=== PATIENT | male | born 1940 | race Caucasian/White ===

== ENCOUNTER → 2017-12-03 05:59 | Outpatient (CLI) | payer MEDICARE, OTHER, SELFPAY ==
[2017-12-03 07:29] LABS: AST(SGOT) 18 U/L (15-37); Alanine Aminotransfer ALT/SGPT 29 U/L (16-61); Albumin, Serum 3.9 g/dL (3.2-5.0); Alkaline Phosphatase 48 U/L (45-117); Bilirubin, Direct 0.14 mg/dL (0.00-0.30); Cholesterol 185 mg/dL (200); Globulin 3.9 g/dL (2.2-4.2); High Density Lipoprotein 74 mg/dL; Protein, Total 7.8 g/dL (6.4-8.2); Triglycerides 81 mg/dL; Very Low Density Lipoprotein 16 mg/dL (5-40)
== END ==
PROVIDERS: Family Provider Internal Medicine; PCP Internal Medicine; Visit Provider Internal Medicine Cardiovascular Disease
DX: E78.5 Hyperlipidemia, unspecified (principal); Z79.899 Other long term (current) drug therapy
CPT/HCPCS: 36415; 80061; 80076

== ENCOUNTER → 2018-03-25 06:00 | Outpatient (CLI) | payer MEDICARE, OTHER, SELFPAY ==
--- NOTE | 2018-03-25 06:00 | DT_ITS ---
This patient was seen during an EMR downtime March 21, 2018 - March 28, 2018. This patient may have a combination of paper and electronic documentation or all paper documentation. All documentation is viewable within the e-chart portion of [facility] for each patient visit.
[2018-03-25 06:23] LABS: Bacteria 0 SEEN /hpf (None Seen); Mucous, Urine 0 SEEN /hpf (<or=2+); Red Blood Cells-Urine 0 SEEN /hpf (0-5); White Blood Cells 0 SEEN /hpf (0-5)
[2018-03-25 07:24] LABS: Color, Urine Yellow (Yellow); Glucose, Dipstick Normal (Normal); Ketone-Dipstick Negative (Negative); Leukocyte Esterase-Dipstick Negative /ul (Negative); Nitrite-Dipstick Negative (Negative); Occult Blood-Urine Negative /ul (Negative); Protein-Dipstick Negative (Negative); Specific Gravity, Urine 1.015 (1.002-1.030); Urine Bilirubin Dipstick Negative (Negative); Urine Clarity Clear (Clear); Urine Urobilinogen Normal (Normal)
[2018-03-25 09:47] LABS: Squamous Epithelial Cells - UA 0-5 SEEN /hpf (0-5)
[2018-03-25 10:24] LABS: Hematocrit 42.5 % (40-54); Hemoglobin 14.1 g/dl (13.0-16.5); Mean Corp Hgb Conc 33.2 g/gl (32-36); Mean Corpuscular Hgb 30.5 pg (27.0-32.0); Mean Corpuscular Volume 91.8 fL (80-94); RBC Distribution Width CV 13.6 % (11.6-14.6); Red Blood Count 4.63 M/mm3 (4.6-6.2); White Blood Count 6.5 K/mm3 (4.4-11.0)
[2018-03-25 10:25] LABS: Absolute Lymphocyte Count 2.29 X10^3/ul (0.83-4.51); Absolute Neutrophil Count 3.3 X10^3/uL (2.0-7.7); Basophil# 0.03 X10^3/uL; Basophil% 0.5 % (0-1); Eosinophil# 0.43 X10^3/uL; Eosinophils% 6.6 % (0-5); Lymphocyte # 2.29 X10^3/ul (4.0); Lymphocyte % 35.3 % (19-41); Mean Platelet Vol. 11.1 fl (6.2-12.0); Monocyte# 0.46 X10^3/uL; Monocyte% 7.1 % (0-10); Neutrophil # 3.27 X10^3/uL (2.7-7.7); Neutrophil % 50.3 % (47-70); POSITIVE COUNT NO; POSITIVE DIFFERENTIAL NO; POSITIVE MORPHOLOGY NO; Platelet Count 210 K/mm3 (150-450)
[2018-03-25 14:45] LABS: Vitamin D,25 Hydroxy 29.2 ng/mL (29.95-100.01)
[2018-03-25 15:13] LABS: BUN 21 mg/dL (7-18); BUN/Creat Ratio 20.8 RATIO (10-20); Creatinine, Serum 1.01 mg/dL (0.70-1.30); EST Glomerular Filtration Rate 76 mL/min (>60); Est Glom Filt Rate - Afr Amer 92 mL/min (>60); Glucose 92 mg/dL (74-106)
[2018-03-25 15:14] LABS: AST(SGOT) 17 U/L (15-37); Alanine Aminotransfer ALT/SGPT 30 U/L (16-61); Albumin, Serum 3.8 g/dL (3.2-5.0); Alkaline Phosphatase 53 U/L (45-117); Anion Gap 7 (5-15); Calcium,Total 9.1 mg/dL (8.5-10.1); Chloride 104 mmol/L (98-107); Cholesterol 157 mg/dL (200); Globulin 3.9 g/dL (2.2-4.2); High Density Lipoprotein 66 mg/dL; PSA,Total - Annual Screen 1.34 ng/mL (0.00-4.00); Potassium 3.8 mmol/L (3.5-5.1); Protein, Total 7.7 g/dL (6.4-8.2); Sodium Level 141 mmol/L (136-145); Thyroid Stim Hormone (TSH) 2.47 uIU/mL (0.358-3.74); Triglycerides 49 mg/dL; Very Low Density Lipoprotein 10 mg/dL (5-40)
== END ==
PROVIDERS: Family Provider Internal Medicine; PCP Internal Medicine; Visit Provider Internal Medicine
DX: E11.9 Type 2 diabetes mellitus without complications (principal); E55.9 Vitamin D deficiency, unspecified; N40.1 Benign prostatic hyperplasia with lower urinary tract symptoms; Z12.5 Encounter for screening for malignant neoplasm of prostate
CPT/HCPCS: 36415; 80053; 80061; 81001; 82043; 82306; 82570; 84153; 84443; 85025; G0103

== ENCOUNTER → 2018-06-03 05:54 | Outpatient (CLI) | payer MEDICARE, OTHER, SELFPAY ==
[2018-06-03 07:47] LABS: AST(SGOT) 17 U/L (15-37); Alanine Aminotransfer ALT/SGPT 28 U/L (16-61); Albumin, Serum 3.7 g/dL (3.2-5.0); Alkaline Phosphatase 45 U/L (45-117); Bilirubin, Direct 0.18 mg/dL (0.00-0.30); Cholesterol 162 mg/dL (200); Globulin 3.7 g/dL (2.2-4.2); High Density Lipoprotein 73 mg/dL; Protein, Total 7.4 g/dL (6.4-8.2); Triglycerides 49 mg/dL; Very Low Density Lipoprotein 10 mg/dL (5-40)
== END ==
PROVIDERS: Family Provider Internal Medicine; PCP Internal Medicine; Visit Provider Internal Medicine Cardiovascular Disease
DX: E78.5 Hyperlipidemia, unspecified (principal); Z79.899 Other long term (current) drug therapy
CPT/HCPCS: 36415; 80061; 80076

== ENCOUNTER → 2018-12-19 06:00 | Outpatient (CLI) | payer MEDICARE, OTHER, SELFPAY ==
[2018-12-16 09:14] VITALS: BMI 25.4
[2018-12-19 07:59] LABS: AST(SGOT) 21 U/L (15-37); Alanine Aminotransfer ALT/SGPT 31 U/L (16-61); Albumin, Serum 3.9 g/dL (3.2-5.0); Alkaline Phosphatase 53 U/L (45-117); Bilirubin, Direct 0.17 mg/dL (0.00-0.30); Cholesterol 171 mg/dL (200); High Density Lipoprotein 77 mg/dL; Protein, Total 7.9 g/dL (6.4-8.2); Triglycerides 63 mg/dL; Very Low Density Lipoprotein 13 mg/dL (5-40)
== END ==
PROVIDERS: Family Provider Internal Medicine; PCP Internal Medicine; Referring Provider Physician Assistant Medical; Visit Provider Physician Assistant Medical
DX: I10 Essential (primary) hypertension (principal); I25.10 Atherosclerotic heart disease of native coronary artery without angina pectoris; I47.2 Ventricular tachycardia
CPT/HCPCS: 36415; 80061; 80076

== ENCOUNTER → 2019-12-04 06:09 | Outpatient (CLI) | payer MEDICARE, OTHER, SELFPAY ==
[2018-12-16 09:14] VITALS: BMI 25.4
[2019-12-04 06:19] LABS: Bacteria 0 SEEN /hpf (None Seen); Mucous, Urine 0 SEEN /hpf (<or=2+); Red Blood Cells-Urine 0 SEEN /hpf (0-5); Squamous Epithelial Cells - UA 0 SEEN /hpf (0-5); White Blood Cells 0 SEEN /hpf (0-5)
[2019-12-04 07:24] LABS: Color, Urine Yellow (Yellow); Glucose, Dipstick Normal (Normal); Ketone-Dipstick Negative (Negative); Leukocyte Esterase-Dipstick Negative /ul (Negative); Nitrite-Dipstick Negative (Negative); Occult Blood-Urine Negative /ul (Negative); Protein-Dipstick Negative (Negative); Urine Bilirubin Dipstick Negative (Negative); Urine Clarity Clear (Clear); Urine Urobilinogen Normal (Normal)
[2019-12-04 07:26] LABS: Absolute Lymphocyte Count 1.96 X10^3/uL (0.83-4.51); Absolute Neutrophil Count 3.5 X10^3/uL (2.0-7.7); Basophil# 0.05 X10^3/uL; Basophil% 0.8 % (0-1); Eosinophil# 0.22 X10^3/uL; Eosinophils% 3.5 % (0-5); Hematocrit 46.6 % (40-54); Hemoglobin 15.1 g/dL (13.0-16.5); Lymphocyte # 1.96 X10^3/ul (4.0); Lymphocyte % 31.4 % (19-41); Mean Corp Hgb Conc 32.4 g/dL (32-36); Mean Corpuscular Hgb 29.9 pg (27.0-32.0); Mean Corpuscular Volume 92.3 fL (80-94); Mean Platelet Vol. 11.2 fl (6.2-12.0); Monocyte# 0.55 X10^3/uL; Monocyte% 8.8 % (0-10); NRBC Flagged by Analyzer 0 % (0-5); Neutrophil # 3.45 X10^3/uL (2.7-7.7); Neutrophil % 55.2 % (47-70); Platelet Count 214 K/mm3 (150-450); RBC Distribution Width CV 13.1 % (11.6-14.6); RBC Distribution Width SD 44.1 fl (35.1-43.9); Red Blood Count 5.05 M/mm3 (4.6-6.2); White Blood Count 6.3 K/mm3 (4.4-11.0)
[2019-12-04 07:44] LABS: Microalbumin:Creatinine Ratio 10.4 mg/g CRE (<30 mg/g CRE)
[2019-12-04 07:58] LABS: AST(SGOT) 22 U/L (15-37); Alanine Aminotransfer ALT/SGPT 36 U/L (16-61); Albumin, Serum 4.1 g/dL (3.2-5.0); Alkaline Phosphatase 45 U/L (45-117); Anion Gap 7 (5-15); BUN 14 mg/dL (7-18); BUN/Creat Ratio 14.7 RATIO (10-20); Calcium,Total 9.8 mg/dL (8.5-10.1); Chloride 102 mmol/L (98-107); Cholesterol 184 mg/dL (200); Creatinine, Serum 0.95 mg/dL (0.70-1.30); EST Glomerular Filtration Rate 81 mL/min (>60); Est Glom Filt Rate - Afr Amer 98 mL/min (>60); Globulin 4.1 g/dL (2.2-4.2); Glucose 115 mg/dL (74-106); High Density Lipoprotein 77 mg/dL; Potassium 3.8 mmol/L (3.5-5.1); Protein, Total 8.2 g/dL (6.4-8.2); Sodium Level 140 mmol/L (136-145); Thyroid Stim Hormone (TSH) 3.17 uIU/mL (0.358-3.74); Triglycerides 69 mg/dL; Very Low Density Lipoprotein 14 mg/dL (5-40)
[2019-12-04 09:06] LABS: Vitamin D,25 Hydroxy 96.5 ng/mL (29.95-100.01)
== END ==
PROVIDERS: Nurse Practitioner Family; PCP Internal Medicine; Referring Provider Internal Medicine; Visit Provider Internal Medicine
DX: E11.65 Type 2 diabetes mellitus with hyperglycemia (principal); E78.5 Hyperlipidemia, unspecified; E55.9 Vitamin D deficiency, unspecified
CPT/HCPCS: 36415; 80053; 80061; 81001; 82043; 82248; 82306; 82570; 84443; 85025

== ENCOUNTER → 2020-05-20 06:06 | Outpatient (CLI) | payer MEDICARE, OTHER, SELFPAY ==
[2019-12-21 08:40] VITALS: BMI 25.7
[2020-05-20 07:39] LABS: AST(SGOT) 16 U/L (15-37); Alanine Aminotransfer ALT/SGPT 30 U/L (16-61); Albumin, Serum 3.9 g/dL (3.2-5.0); Alkaline Phosphatase 55 U/L (45-117); Bilirubin, Direct 0.21 mg/dL (0.00-0.30); Cholesterol 179 mg/dL (200); Globulin 3.9 g/dL (2.2-4.2); High Density Lipoprotein 73 mg/dL; Protein, Total 7.8 g/dL (6.4-8.2); Triglycerides 72 mg/dL; Very Low Density Lipoprotein 14 mg/dL (5-40)
== END ==
PROVIDERS: PCP Internal Medicine; Referring Provider Nurse Practitioner Family; Visit Provider Nurse Practitioner Family
DX: E78.00 Pure hypercholesterolemia, unspecified (principal); E78.5 Hyperlipidemia, unspecified
CPT/HCPCS: 36415; 80061; 80076

== ENCOUNTER → 2020-12-31 06:35 | Outpatient (CLI) | payer MEDICARE, OTHER, SELFPAY ==
[2020-12-19 09:05] VITALS: BMI 25.7
--- NOTE | 2020-12-31 16:31 | STRESSREP ---
Stress Test Report Exercise myocardial perfusion stress test. 80-year-old man with a history of coronary artery disease status post coronary bypass surgery, none sustained ventricular tachyarrhythmia. Stress protocol: Resting EKG demonstrates normal sinus rhythm with a rate of 76 bpm normal intervals are noted occasional premature ventricular complexes was noted. The patient exercised according to regular Tuan protocol for total duration of 5 minutes. Patient completed 2 minutes into stage II of the Tuan protocol the maximum heart rate attained was 151 bpm which was 107% of max impacted heart rate the maximum workload was 7 metabolic equivalents. At rest no ST or T wave changes were noted to suggest ischemia at peak exercise there was downsloping ST depression noted in leads II, III and aVF of approximately 2 mm and [address] depression noted in lead V6. There was mild widening of the QRS complex suggesting an IVCD of the left bundle branch block type. During recovery the ST changes returned to near baseline. Premature ventricular complexes as well as a 4 beat run of wide-complex tachycardia were noted. The test was terminated due to dyspnea. The peak blood pressure was 168/72 with the resting blood pressure 154/84 mmHg. Myocardial perfusion protocol. 11.7 mCi of technetium 99m sestamibi was injected at rest. The patient exercised according to the Tuan protocol for 5 minutes and at peak exercise 35.0 mCi of technetium 99m sestamibi was injected stress images were obtained stress and rest images were reconstructed and compared in the short axis vertical long horizontal long axis. Gated images were also obtained. Perfusion SPECT analysis: Review of the stress images demonstrate normal uptake of tracer noted in all areas of the myocardium the resting images similarly demonstrate normal uptake of tracer noted in all areas of the myocardium. No obvious reversibility is noted to suggest ischemia. Gated SPECT analysis: The gated ejection fraction was noted to be 60%. Conclusion: Exercise stress test with EKG changes suggestive of ischemia at a moderate workload. Nuclear images demonstrate no evidence of ischemia. Asymptomatic nonsustained ventricular tachyarrhythmia noted. Preserved ejection fraction.
== END ==
PROVIDERS: PCP Internal Medicine; Referring Provider Internal Medicine Cardiovascular Disease; Visit Provider Internal Medicine Cardiovascular Disease
DX: Z95.1 Presence of aortocoronary bypass graft (principal)
CPT/HCPCS: 78452; 93017; A9500; A4216

== ENCOUNTER 2022-01-12 13:43 | Outpatient (CLI) | payer MEDICARE, OTHER, SELFPAY ==
--- NOTE | 2022-01-12 13:48 | ECHOCS_ITS ---
Reason For Study: Vtach, s/p CABG Procedure This was a 2D Doppler, Color Flow transthoracic echocardiogram. Contrast injection was performed. Exam performed in department. Left Ventricle Normal LV size. Left ventricular systolic function is normal. The estimated ejection fraction is 55 %. Stage 1 diastolic dysfunction. Post operative septal motion. No regional wall motion abnormalities noted. Right Ventricle Normal RV size. Normal systolic function. Atria Normal left atrium. Normal right atrium. Bubble contrast study negative for right to left interatrial shunt. Mitral Valve Normal mitral valve. Tricuspid Valve Normal tricuspid valve. Mild (1+) tricuspid valve insufficiency. Pulmonary artery systolic pressure is 28 mmHg. Aortic Valve Trisinus/trileaflet aortic valve. Pulmonic Valve The pulmonic valve is not well visualized. Great Vessels Normal aortic root. The pulmonary artery is normal size. Normal inferior vena cava. Pericardium/Pleural No pericardial effusion. Medication Performed a rapid injection of agitated mix of 9 cc saline and 1cc air to assess for atrial septal defect. Diluted definity 3.5ml given slow IV push to enhance endocardial definition. MMode/2D Measurements & Calculations LVIDd: 5.0 cm IVSd: 0.99 cm Ao root diam: 3.3 cm LVIDs: 3.4 cm LVPWd: 0.89 cm RVDd: 5.3 cm FS: 33.4 % LAV(MOD-bp): 48.2 ml LVAd ap4: 32.8 cm2 SV(MOD-sp4): 63.3 ml LAV(MOD-bp) Indexed: 24.6 ml/m2 LVLd ap4: 8.5 cm LAV(MOD-sp2): 53.5 ml EDV(MOD-sp4): 101.6 ml LAV(MOD-sp4): 43.1 ml EDV(sp4-el): 106.9 ml LVAs ap4: 18.0 cm2 LVLs ap4: 6.9 cm ESV(MOD-sp4): 38.3 ml ESV(sp4-el): 40.2 ml EF(MOD-sp4): 62.3 % EF(sp4-el): 62.4 % SV(sp4-el): 66.7 ml LA A4 area: 16.8 cm2 LA dimension(2D): 4.0 cm RA A4 area: 16.1 cm2 Doppler Measurements & Calculations MV E max vinay: 58.5 cm/sec Lat Peak E' Vinay: 9.9 cm/sec Med Peak E' Vinay: 4.5 cm/sec MV A max vinay: 66.8 cm/sec E/E' lat: 5.9 E/E' med: 13.1 MV E/A: 0.88 Ao V2 max: 105.7 cm/sec LV V1 max: 73.2 cm/sec PA V2 max: 65.7 cm/sec Ao max P.5 mmHg LV V1 max P.1 mmHg Ao V2 mean: 75.4 cm/sec Ao mean P.5 mmHg Ao V2 VTI: 24.9 cm TR max vinay: 240.2 cm/sec TR max P.1 mmHg ECHO/Echo Complete W/ Contrast Interpretation Summary Normal LV size. Left ventricular systolic function is normal. The estimated ejection fraction is 55 %. Stage 1 diastolic dysfunction. Pulmonary artery systolic pressure is 28 mmHg. Contrast injection was performed. Ordering Physician: Larry Pittman Referring Physician: Shima Allen Performed By: Elisabet Camargo, ELADIA, RVT
== END 2022-01-12 23:59 | disposition home or self-care (01) ==
LOC: CVS 13:47
PROVIDERS: PCP Internal Medicine; Referring Provider Internal Medicine Cardiovascular Disease; Visit Provider Internal Medicine Cardiovascular Disease
DX: I47.2 Ventricular tachycardia (principal)
CPT/HCPCS: 93306; Q9957; A4216; C8929

== ENCOUNTER → 2022-03-23 | Outpatient (CLI) | payer MEDICARE, OTHER, SELFPAY ==
[2022-03-23 06:55] LABS: Bacteria 0 SEEN /hpf (None Seen); Mucous, Urine 0 SEEN /hpf (<or=2+); Red Blood Cells-Urine 0 SEEN /hpf (0-5); Squamous Epithelial Cells - UA 0 SEEN /hpf (0-5); White Blood Cells 0 SEEN /hpf (0-5)
[2022-03-23 07:55] LABS: Absolute Lymphocyte Count 1.94 X10^3/uL (0.83-4.51); Absolute Neutrophil Count 3.6 X10^3/uL (2.0-7.7); Basophil# 0.05 X10^3/uL; Basophil% 0.8 % (0-1); Eosinophil# 0.23 X10^3/uL; Eosinophils% 3.6 % (0-5); Hematocrit 43.5 % (40-54); Hemoglobin 14.4 g/dL (13.0-16.5); Lymphocyte # 1.94 X10^3/ul (0.83-4.51); Lymphocyte % 30.3 % (19-41); Mean Corp Hgb Conc 33.1 g/dL (32-36); Mean Corpuscular Hgb 30.7 pg (27.0-32.0); Mean Corpuscular Volume 92.8 fL (80-94); Mean Platelet Vol. 10.9 fl (6.2-12.0); Monocyte# 0.55 X10^3/uL; Monocyte% 8.6 % (0-10); NRBC Flagged by Analyzer 0 % (0-5); Neutrophil # 3.61 X10^3/uL (2.7-7.7); Neutrophil % 56.4 % (47-70); Platelet Count 226 K/mm3 (150-450); RBC Distribution Width CV 12.9 % (11.6-14.6); RBC Distribution Width SD 43.6 fl (35.1-43.9); Red Blood Count 4.69 M/mm3 (4.6-6.2); White Blood Count 6.4 K/mm3 (4.4-11.0)
[2022-03-23 08:22] LABS: Vitamin D,25 Hydroxy 99.7 ng/mL
[2022-03-23 08:32] LABS: AST(SGOT) 20 U/L (15-37); Alanine Aminotransfer ALT/SGPT 27 U/L (16-61); Albumin, Serum 3.8 g/dL (3.2-5.0); Alkaline Phosphatase 43 U/L (45-117); Anion Gap 6 (5-15); BUN 19 mg/dL (7-18); BUN/Creat Ratio 21.5 RATIO (10-20); Calcium,Total 9.4 mg/dL (8.5-10.1); Chloride 103 mmol/L (98-107); Cholesterol 183 mg/dL (200); Creatinine, Serum 0.88 mg/dL (0.70-1.30); EST Glomerular Filtration Rate 88 mL/min (>60); Est Glom Filt Rate - Afr Amer 107 mL/min (>60); Globulin 3.8 g/dL (2.2-4.2); Glucose 135 mg/dL (74-106); High Density Lipoprotein 68 mg/dL; Potassium 3.9 mmol/L (3.5-5.1); Protein, Total 7.6 g/dL (6.4-8.2); Sodium Level 138 mmol/L (136-145); Thyroid Stim Hormone (TSH) 2.72 uIU/mL (0.358-3.74); Triglycerides 58 mg/dL; Very Low Density Lipoprotein 12 mg/dL (5-40)
[2022-03-23 08:35] LABS: Color, Urine Yellow (Yellow); Glucose, Dipstick Normal (Normal); Ketone-Dipstick Negative (Negative); Leukocyte Esterase-Dipstick Negative /ul (Negative); Nitrite-Dipstick Negative (Negative); Occult Blood-Urine Negative /ul (Negative); Protein-Dipstick Negative (Negative); Specific Gravity, Urine 1.005 (1.002-1.030); Urine Bilirubin Dipstick Negative (Negative); Urine Clarity Clear (Clear); Urine Urobilinogen Normal (Normal)
[2022-03-23 08:56] LABS: Microalbumin,Random Urine 5.4 mg/L (NO RANGE EST.); Microalbumin:Creatinine Ratio 9.9 mg/g CRE (<30 mg/g CRE)
== END | disposition home or self-care (01) ==
LOC: LAB 06:50
PROVIDERS: PCP Internal Medicine; Referring Provider Internal Medicine; Visit Provider Internal Medicine
DX: I25.10 Atherosclerotic heart disease of native coronary artery without angina pectoris (principal); E55.9 Vitamin D deficiency, unspecified; I11.9 Hypertensive heart disease without heart failure; E78.5 Hyperlipidemia, unspecified
CPT/HCPCS: 36415; 80053; 80061; 81001; 82043; 82306; 82570; 84443; 85025

== ENCOUNTER → 2023-12-30 | Outpatient (CLI) | payer MEDICARE, OTHER, SELFPAY ==
--- OUTSIDE RECORDS SUMMARY | 2023-12-30 06:50 | XMS RPT_ITS | CCD ---
Author Name Unknown Address [id number] [place] [address] Organization [facility] Care Team Providers Care Stiff Straw Hat Washer Name Role Phone Ana ANDREA, Madalyn Trevino Unavailable Unavailable MD Pittman Cyril S Unavailable Lara Carolina Unavailable Unavailable Lara Carolina Unavailable Unavailable Amira Torres Y Unavailable Unavailable MD Pittman Cyril S Unavailable Lara Carolina Unavailable Unavailable Lara Carolina Unavailable Unavailable Lara Carolina Unavailable Unavailable Shima Allen DO Attending Unavailable Shima Allen DO Consulting Unavailable Mya Velez DO Referring Unavailable Medications Completed/Discontinued Medications Medication Drug Class(es) Dates Sig (Normalized) Sig (Original) aspirin 81 mg oral tablet (20 sources) Platelet Aggregation Inhibitor, Nonsteroidal Anti-inflammatory Drug Start: 11-15-2003 take 1 tablet by mouth once daily ASPIRIN 81 MG TABS One tablet by mouth daily ASPIRIN [id number] Danisha Melendez Problems Active Problems Problem Classification Problem Date Documented Da te Episodic/Chronic Cardiac dysrhythmias (9 sources) Paroxysmal ventricular tachycardia; Translations: [Ventricular tachycardia] Onset: 12-26-2010 12-26-2010 Chronic Coronary atherosclerosis and other heart disease (20 sources) Coronary atherosclerosis; Translations: [Coronary arteriosclerosis] Onset: 12-26-2010 Resolved: 05-21-2016 12-26-2010 Chronic Diabetes mellitus with complications (9 sources) Peripheral circulatory disorder associated with type 2 diabetes mellitus; Translations: [Type 2 diabetes mellitus with diabetic peripheral angiopathy without gangrene] Onset: 12-26-2010 12-26-2010 Chronic Disorders of lipid metabolism (9 sources) Hyperlipidemia; Translations: [Hyperlipidemia, unspecified] Onset: 12-26-2010 12-26-2010 Chronic Essential hypertension (9 sources) Hypertensive disorder; Translations: [Essential (primary) hypertension] Onset: 12-26-2010 12-26-2010 Chronic Other circulatory disease (9 sources) Disorder of carotid artery; Translations: [Occlusion and stenosis of unspecified carotid artery] Onset: 05-21-2015 05-21-2015 Chronic Unclassified (4 sources) Long-term drug therapy; Translations: [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] Onset: 12-26-2010 12-26-2010 Past or Other Problems Problem Classification Problem Date Documented Da te Episodic/Chronic Coronary atherosclerosis and other heart disease (9 sources) Presence of aortocoronary bypass graft; Translations: [Presence of aortocoronary bypass graft] Onset: 12-26-2010 12-26-2010 Episodic Neoplasms of unspecified nature or uncertain behavior (9 sources) Neoplasm of uncertain behavior of skin; Translations: [Neoplasm of uncertain behavior of skin] 11-06-2009 Episodic Other aftercare (5 sources) 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; Translations: [Other detention (current) drug therapy] Onset: 12-26-2010 12-26-2010 Episodic Other nutritional; endocrine; and metabolic disorders (14 sources) Body mass index (BMI) 26.0-26.9, adult; Translations: [Body mass index (BMI) 27.0-27.9, adult] Onset: 11-14-2013 05-27-2016 Episodic Other nutritional; endocrine; and metabolic disorders (4 sources) Body mass index (BMI) 27.0-27.9, adult; Translations: [Body mass index (BMI) 27.0-27.9, adult] Onset: 11-14-2013 11-14-2013 Episodic Other screening for suspected conditions (not mental disorders or infectious disease) (18 sources) Abnormal result of cardiovascular function study, unspecified; Translations: [Abnormal result of cardiovascular function study, unspecified] Onset: 12-26-2010 Resolved: 05-21-2016 05-21-2016 Episodic Results Test Name Value Interpretation Reference Range Facil ity Vital Signs Date Time Vital Sign Value Performing Clinician Khadra marquez 06-14-2017 11:03-0400 Heart rate 60 /min Lara Carolina [facility] Work Phone: 06-14-2017 10:41-0400 BMI (Body Mass Index) 24.95 kg/m2 Lara Sol [facility] Work Phone: 06-14-2017 10:41-0400 BP Diastolic 70 mm[Hg] [facility] Work Phone: 06-14-2017 10:41-0400 BP Systolic 112 mm[Hg] [facility] Work Phone: 06-14-2017 10:41-0400 Height 175.26 cm [facility] Work Phone: 06-14-2017 10:41-0400 Pulse (Heart Rate) 64 /min [facility] Work Phone: 06-14-2017 10:41-0400 Respiratory Rate 18 /min Lara Davidson [facility] Work Phone: 06-14-2017 10:41-0400 Weight 76.66 kg Lara Davidson [facility] Work Phone: 12-03-2016 08:46-0500 BMI (Body Mass Index) 26.73 kg/m2 MD [facility] Work Phone: 12-03-2016 08:46-0500 BP Diastolic 60 mm[Hg] MD [facility] Work Phone: 12-03-2016 08:46-0500 BP Systolic 140 mm[Hg] MD [facility] Work Phone: 12-03-2016 08:46-0500 BSA (Body Surface Area) 1.98 m2 MD [facility] Work Phone: 12-03-2016 08:46-0500 Pulse (Heart Rate) 64 /min MD [facility] Work Phone: 12-03-2016 08:46-0500 Respiratory Rate 20 /min MD [facility] Work Phone: 12-03-2016 08:46-0500 Weight 82.1 kg MD [facility] Work Phone: 05-21-2015 09:06-0400 Heart rate 49 /min MD [facility] Work Phone: 05-11-2014 08:18-0400 Heart rate 410 ms MD [facility] Work Phone: 08-06-2008 10:52-0400 Height 175.26 cm MD [facility] Work Phone: 08-06-2008 10:52-0400 Weight 75.91 kg MD [facility] Work Phone: Encounters Encounter Date Encounter Type Care Provider Facility Start: 12-04-2022 ambulatory Shima Greyon DO [facility] Procedures Date Procedure Procedure Detail Performing Clinician Start: 12-03-2017 End: 12-03-2017 *Hepatic Function Panel Sarina Moore Start: 12-03-2017 End: 12-03-2017 Lipid panel [AGGREGATE] Sarina Moore Start: 06-14-2017 End: 06-14-2017 ESTHETICIAN SPA Mora Durbin PA-C Work Phone: Start: 06-14-2017 End: 06-14-2017 Electrocardiogram, complete Mora Durbin PA-C Work Phone: Start: 06-14-2017 End: 06-14-2017 Follow Up Appt 6 months Mora almaguer PA-C Work Phone: Start: 06-02-2017 End: 06-02-2017 *Hepatic Function Panel Mora almaguer PA-C Work Phone: Start: 06-02-2017 End: 06-02-2017 Lipid panel [AGGREGATE] Mora almaguer PA-C Work Phone: Start: 12-03-2016 End: 12-22-2016 *Hepatic Function Panel Sarina Moore Start: 12-03-2016 End: 12-03-2016 Follow Up Appt 6 months Sarina Moore Start: 12-03-2016 End: 12-22-2016 Lipid panel [AGGREGATE] Sarina Moore Start: 12-03-2016 End: 12-03-2016 MMSarina Pittman MD Start: 05-27-2016 End: 05-27-2016 Dietary management education, guidance, and counseling Larry Pittman MD Start: 05-27-2016 End: 05-27-2016 ESTHETICIAN SPA Mora Durbin PA-C Work Phone: Start: 05-27-2016 End: 05-27-2016 Follow Up Appt 6 months Mora almaguer PA-C Work Phone: Start: 03-16-2016 End: 12-03-2016 *Hepatic Function Panel Mora almaguer PA-C Work Phone: Start: 03-16-2016 End: 12-03-2016 Lipid panel [AGGREGATE] Mora almaguer PA-C Work Phone: Start: 11-26-2015 End: 11-26-2015 Follow Up Appt 6 months Sarina Moore Start: 11-26-2015 End: 11-26-2015 RYANN Pittman MD Start: 11-26-2015 End: 12-09-2015 Nuclear stress test -exercise Larry Pittman MD Start: 09-12-2015 End: 09-16-2015 *Hepatic Function Panel Mora almaguer PA-C Work Phone: Start: 09-12-2015 End: 09-16-2015 Lipid panel [AGGREGATE] Mora almaguer PA-C Work Phone: Start: 05-21-2015 End: 05-21-2015 ESTHETICIAN SPA Mora Durbin PA-C Work Phone: Start: 05-21-2015 End: 05-21-2015 Electrocardiogram, complete Mora Durbin PA-C Work Phone: Start: 05-21-2015 End: 05-21-2015 Follow Up Appt 6 months Mora almaguer PA-C Work Phone: Start: 05-21-2015 End: 05-18-2016 Follow Up Appt Other Mora sahu PA-C Work Phone: Start: 05-21-2015 End: 05-21-2015 Follow Up BP Check Mora Durbin PA-C Work Phone: Start: 03-08-2015 End: 03-08-2015 *Hepatic Function Panel Sarina Moore Start: 03-08-2015 End: 03-08-2015 Lipid panel [AGGREGATE] Sarina Moore Start: 11-13-2014 End: 11-14-2014 Documentation of current medications Larry Pittman MD Start: 11-13-2014 End: 11-13-2014 Follow Up Appt 6 months Sarina Moore Start: 11-13-2014 End: 11-13-2014 MMM Larry Pittman MD Start: 11-13-2014 End: 11-14-2014 Pedal pulse taking Larry Pittman MD Start: 08-18-2014 End: 09-10-2014 *Hepatic Function Panel Sarina Moore Start: 08-18-2014 End: 09-10-2014 Lipid panel [AGGREGATE] Sarina Moore Start: 05-11-2014 End: 05-11-2014 ESTHETICIAN SPA Mora Durbin PA-C Work Phone: Start: 05-11-2014 End: 05-11-2014 Electrocardiogram, complete Mora Durbin PA-C Work Phone: Start: 05-11-2014 End: 05-11-2014 Follow Up Appt 6 months Mora almaguer PA-C Work Phone: Start: 02-15-2014 End: 03-15-2014 *Hepatic Function Panel Sarina Moore Start: 02-15-2014 End: 03-15-2014 Lipid panel [AGGREGATE] Sarina Moore Start: 11-14-2013 End: 11-14-2013 Follow Up Appt 6 months Sarina Moore Start: 11-14-2013 End: 11-14-2013 MMM Larry Pittman MD Start: 08-18-2013 End: 09-12-2013 *Hepatic Function Panel Sarina Moore Start: 08-18-2013 End: 09-12-2013 Lipid panel [AGGREGATE] Sarina Moore Start: 02-01-2013 End: 03-22-2013 *Hepatic Function Panel Lance nuñez MD Start: 02-01-2013 End: 03-22-2013 Lipid panel [AGGREGATE] Lance nuñez MD Start: 11-14-2012 End: 11-14-2012 Follow Up Appt 1 year Lance charles MD Start: 08-18-2012 End: 09-16-2012 *Hepatic Function Panel Lance nuñez MD Start: 08-18-2012 End: 09-16-2012 Lipid panel [AGGREGATE] Lance nuñez MD Start: 04-21-2012 End: 04-21-2012 Follow Up Appt 6 months Lance nuñez MD Start: 04-21-2012 End: 04-21-2012 Lipid panel [AGGREGATE] Lance nuñez MD Start: 02-24-2012 End: 03-10-2012 *Hepatic Function Panel Lance nuñez MD Start: 02-24-2012 End: 03-10-2012 Lipid panel [AGGREGATE] Lance nuñez MD Start: 09-07-2011 End: 09-07-2011 Follow Up Appt 6 months Lance nuñez MD Plan of Treatment Date Care Activity Detail Author Start: 12-16-2017 End: 12-16-2017 Appointment Appointment [facility] Work Phone: Start: 12-09-2017 End: 12-09-2017 Appointment Appointment [facility] Work Phone: Start: 12-03-2017 End: 12-03-2017 *Hepatic Function Panel *Hepatic Function Panel [facility] Work Phone: Start: 12-03-2017 End: 12-03-2017 Lipid panel [AGGREGATE] *Lipid Profile CC PCP [facility] Work Phone: Start: 06-25-2017 End: 06-02-2017 *Hepatic Function Panel *Hepatic Function Panel [facility] Work Phone: Start: 06-25-2017 End: 06-02-2017 Lipid panel [AGGREGATE] *Lipid Profile CC PCP [facility] Work Phone: Start: 06-14-2017 End: 06-14-2017 Appointment Appointment [facility] Work Phone: Start: 06-14-2017 End: 06-14-2017 ESTHETICIAN SPA ESTHETICIAN SPA [facility] Work Phone: Start: 06-14-2017 End: 06-14-2017 Follow Up Appt 6 months Follow Up Appt 6 months [facility] Work Phone: Start: 12-03-2016 End: 12-22-2016 *Hepatic Function Panel *Hepatic Function Panel [facility] Work Phone: Start: 12-03-2016 End: 12-03-2016 Follow Up Appt 6 months Follow Up Appt 6 months [facility] Work Phone: Start: 12-03-2016 End: 12-22-2016 Lipid panel [AGGREGATE] *Lipid Profile CC PCP [facility] Work Phone: Start: 12-03-2016 End: 12-03-2016 MMM MMM [facility] Work Phone: Start: 05-27-2016 End: 05-27-2016 ESTHETICIAN SPA ESTHETICIAN SPA [facility] Work Phone: Start: 05-27-2016 End: 05-27-2016 Follow Up Appt 6 months Follow Up Appt 6 months [facility] Work Phone: Start: 03-16-2016 End: 12-03-2016 *Hepatic Function Panel *Hepatic Function Panel [facility] Work Phone: Start: 03-16-2016 End: 12-03-2016 Lipid panel [AGGREGATE] *Lipid Profile CC PCP [facility] Work Phone: Start: 11-26-2015 End: 11-26-2015 Follow Up Appt 6 months Follow Up Appt 6 months [facility] Work Phone: Start: 11-26-2015 End: 11-26-2015 MMM MMM [facility] Work Phone: Start: 11-26-2015 End: 11-26-2015 Nuclear stress test -exercise Nuclear stress test -exercise [facility] Work Phone: Start: 09-12-2015 End: 09-16-2015 *Hepatic Function Panel *Hepatic Function Panel [facility] Work Phone: Start: 09-12-2015 End: 09-16-2015 Lipid panel [AGGREGATE] *Lipid Profile CC PCP [facility] Work Phone: Start: 05-21-2015 End: 05-21-2015 ESTHETICIAN SPA ESTHETICIAN SPA [facility] Work Phone: Start: 05-21-2015 End: 05-21-2015 Electrocardiogram, complete EKG (In office) [facility] Work Phone: Start: 05-21-2015 End: 05-21-2015 Follow Up Appt 6 months Follow Up Appt 6 months [facility] Work Phone: Start: 05-21-2015 End: 05-18-2016 Follow Up Appt Other Follow Up Appt Other [facility] Work Phone: Start: 05-21-2015 End: 05-21-2015 Follow Up BP Check Follow Up BP Check [facility] Work Phone: Start: 03-08-2015 End: 03-08-2015 *Hepatic Function Panel *Hepatic Function Panel [facility] Work Phone: Start: 03-08-2015 End: 03-08-2015 Lipid panel [AGGREGATE] *Lipid Profile CC PCP [facility] Work Phone: Start: 11-13-2014 End: 11-13-2014 Follow Up Appt 6 months Follow Up Appt 6 months [facility] Work Phone: Start: 11-13-2014 End: 11-13-2014 MMM MMM [facility] Work Phone: Start: 08-18-2014 End: 09-10-2014 *Hepatic Function Panel *Hepatic Function Panel [facility] Work Phone: Start: 08-18-2014 End: 09-10-2014 Lipid panel [AGGREGATE] *Lipid Profile CC PCP [facility] Work Phone: Start: 05-11-2014 End: 05-11-2014 ESTHETICIAN SPA ESTHETICIAN SPA [facility] Work Phone: Start: 05-11-2014 End: 05-11-2014 Electrocardiogram, complete EKG (In office) [facility] Work Phone: Start: 05-11-2014 End: 05-11-2014 Follow Up Appt 6 months Follow Up Appt 6 months [facility] Work Phone: Start: 02-15-2014 End: 03-15-2014 *Hepatic Function Panel *Hepatic Function Panel [facility] Work Phone: Start: 02-15-2014 End: 03-15-2014 Lipid panel [AGGREGATE] *Lipid Profile CC PCP [facility] Work Phone: Start: 11-14-2013 End: 11-14-2013 Follow Up Appt 6 months Follow Up Appt 6 months [facility] Work Phone: Start: 11-14-2013 End: 11-14-2013 MMM MMM [facility] Work Phone: Start: 08-18-2013 End: 09-12-2013 *Hepatic Function Panel *Hepatic Function Panel [facility] Work Phone: Start: 08-18-2013 End: 09-12-2013 Lipid panel [AGGREGATE] *Lipid Profile CC PCP [facility] Work Phone: Start: 02-01-2013 End: 03-22-2013 *Hepatic Function Panel *Hepatic Function Panel [facility] Work Phone: Start: 02-01-2013 End: 03-22-2013 Lipid panel [AGGREGATE] *Lipid Profile [facility] Work Phone: Start: 11-14-2012 End: 11-14-2012 Follow Up Appt 1 year Follow Up Appt 1 year [facility] Work Phone: Start: 08-18-2012 End: 09-16-2012 *Hepatic Function Panel *Hepatic Function Panel [facility] Work Phone: Start: 08-18-2012 End: 09-16-2012 Lipid panel [AGGREGATE] *Lipid Profile [facility] Work Phone: Start: 04-21-2012 End: 04-21-2012 Electrocardiogram, complete EKG (In office) [facility] Work Phone: Start: 04-21-2012 End: 04-21-2012 Follow Up Appt 6 months Follow Up Appt 6 months [facility] Work Phone: Start: 02-24-2012 End: 03-10-2012 *Hepatic Function Panel *Hepatic Function Panel [facility] Work Phone: Start: 02-24-2012 End: 03-10-2012 Lipid panel [AGGREGATE] *Lipid Profile [facility] Work Phone: Start: 09-07-2011 End: 09-07-2011 Follow Up Appt 6 months Follow Up Appt 6 months [facility] Work Phone: Patient Education [facility] Work Phone: Payers Date Payer Category Payer Medicare [id number] 2021 Private Health Insurance [facility] [id number] 2005 Private Health Insurance [facility] [id number] 1940 Unknown [id number] Unknown Summary Purpose Family History No Family History Records Found Advance Directives No Advanced Directives Records Found Additional Source Comments (unrecognized sect ion and content) No Status Records Found INFORMATION SOURCE (unrecogn ized section and content) FOR RECORDS PERTAINING TO PATIENTS WHO ARE OR HAVE BEEN ENROLLED IN A CHEMICAL DEPENDENCY/SUBSTANCEABUSE PROGRAM, SOME INFORMATION MAY BE OMITTED. This clinical summary was aggregated from multiple sources. Caution should be exercised in using it in the provision of clinical care. This summary normalizes information from multiple sources, and as a consequence, information in this document may materially change the coding, format and clinical context of patient data. In addition, data may be omitted in some cases. CLINICAL DECISIONS SHOULD BE BASED ON THE PRIMARY CLINICAL RECORDS. [facility]. provides no warranty or guarantee of the accuracy or completeness of information in this document.
[2023-12-30 06:53] LABS: Bacteria 0 SEEN /hpf (None Seen); Mucous, Urine 0 SEEN /hpf (<or=2+); Squamous Epithelial Cells - UA 0 SEEN /hpf (0-5)
[2023-12-30 07:25] LABS: Absolute Lymphocyte Count 2.14 X10^3/uL (0.83-4.51); Absolute Neutrophil Count 3.3 X10^3/uL (2.0-7.7); Basophil# 0.05 X10^3/uL; Basophil% 0.8 % (0-1); Eosinophil# 0.22 X10^3/uL; Eosinophils% 3.6 % (0-5); Glucose, Dipstick Normal (Normal); Hematocrit 41.5 % (40-54); Ketone-Dipstick Negative (Negative); Leukocyte Esterase-Dipstick Negative /ul (Negative); Lymphocyte # 2.14 X10^3/ul (0.83-4.51); Lymphocyte % 34.6 % (19-41); Mean Corp Hgb Conc 33.7 g/dL (32-36); Mean Corpuscular Volume 91.8 fL (80-94); Mean Platelet Vol. 10.5 fl (6.2-12.0); Monocyte# 0.51 X10^3/uL; Monocyte% 8.2 % (0-10); NRBC Flagged by Analyzer 0 % (0-5); Neutrophil # 3.26 X10^3/uL (2.7-7.7); Neutrophil % 52.6 % (47-70); Nitrite-Dipstick Negative (Negative); Occult Blood-Urine Negative /ul (Negative); Platelet Count 225 K/mm3 (150-450); Protein-Dipstick Negative (Negative); RBC Distribution Width CV 12.8 % (11.6-14.6); RBC Distribution Width SD 43.5 fl (35.1-43.9); Red Blood Count 4.52 M/mm3 (4.6-6.2); Urine Bilirubin Dipstick Negative (Negative); Urine Urobilinogen Normal (Normal); White Blood Count 6.2 K/mm3 (4.4-11.0)
[2023-12-30 07:32] LABS: Color, Urine Yellow (Yellow); Urine Clarity Clear (Clear)
[2023-12-30 07:36] LABS: Red Blood Cells-Urine 0 SEEN /hpf (0-5); White Blood Cells 0 SEEN /hpf (0-5)
[2023-12-30 07:59] LABS: AST(SGOT) 20 U/L (15-37); Alanine Aminotransfer ALT/SGPT 27 U/L (16-61); Albumin, Serum 3.8 g/dL (3.2-5.0); Alkaline Phosphatase 47 U/L (45-117); Anion Gap 7 (5-15); BUN 19 mg/dL (7-18); BUN/Creat Ratio 17.8 RATIO (10-20); Chloride 101 mmol/L (98-107); Cholesterol 165 mg/dL (200); Creatinine, Serum 1.07 mg/dL (0.70-1.30); EST Glomerular Filtration Rate 70 mL/min (>60); Est Glom Filt Rate - Afr Amer 85 mL/min (>60); Globulin 3.7 g/dL (2.2-4.2); Glucose 130 mg/dL (74-106); High Density Lipoprotein 73 mg/dL; Potassium 3.7 mmol/L (3.5-5.1); Protein, Total 7.5 g/dL (6.4-8.2); Sodium Level 138 mmol/L (136-145); Thyroid Stim Hormone (TSH) 2.64 uIU/mL (0.358-3.74); Triglycerides 46 mg/dL; Very Low Density Lipoprotein 9 mg/dL (5-40)
[2023-12-30 10:52] LABS: Microalbumin,Random Urine < 5.0 mg/L (NO RANGE EST.)
== END | disposition home or self-care (01) ==
LOC: LAB 06:48
PROVIDERS: PCP Internal Medicine; Referring Provider Internal Medicine; Visit Provider Internal Medicine
DX: E55.9 Vitamin D deficiency, unspecified (principal); E11.9 Type 2 diabetes mellitus without complications; E78.5 Hyperlipidemia, unspecified
CPT/HCPCS: 36415; 80053; 80061; 81001; 82043; 82306; 82570; 84443; 85025

== ENCOUNTER → 2024-01-21 | Outpatient (CLI) | payer MEDICARE, OTHER, SELFPAY ==
--- NOTE | 2024-01-21 07:34 | CDU_ITS ---
Reason For Study: Carotid Artery Stenosis Rt. Velocities/BP Lt. Velocities/BP Prox CCA 65.8/14.2 cm/sec. Prox CCA 113.3/16.7 cm/sec. Mid CCA 79.8/19.3 cm/sec. Mid CCA 74.3/17.1 cm/sec. Dist CCA 58.9/12.7 cm/sec. Dist CCA 76.5/10.6 cm/sec. Prox ICA 57.8/14.9 cm/sec. Prox ICA 55.4/17.6 cm/sec. Mid ICA 66.6/21.5 cm/sec. Mid ICA 69.5/21.6 cm/sec. Dist ICA 70.6/22.6 cm/sec. Dist ICA 52.0/15.1 cm/sec. Rt. ICA/CCA = 0.9. Lt. ICA/CCA = 0.9. Prox ECA 160.0/23.0 cm/sec. Prox ECA 116.1/17.3 cm/sec. Rt. Vert. 42.8/9.8 cm/sec. Lt. Vert. 42.1/10.9 cm/sec. Right Extracranial There is homogeneous, smooth atherosclerotic plaque noted in the right common carotid artery. There is heterogeneous, irregular atherosclerotic plaque noted in the right internal carotid artery. There is heterogeneous, irregular atherosclerotic plaque noted in the right external carotid artery. Antegrade flow is noted in the right vertebral artery. Left Extracranial There is homogeneous, smooth atherosclerotic plaque noted in the left common carotid artery. There is heterogeneous, irregular atherosclerotic plaque noted in the left internal carotid artery. There is heterogeneous, irregular atherosclerotic plaque noted in the left external carotid artery. Antegrade flow is noted in the left vertebral artery. Procedure Carotid Duplex [id number]. This is a Carotid Duplex examination using B-mode, color flow and specral Doppler. The exam was diagnostic. Exam performed in department. VL/Carotid Duplex Ultrasound Interpretation Summary Irregular calcific plaque with shadowing at the proximal right internal carotid artery with less than 50% stenosis Less than 50% stenosis right external carotid artery Irregular calcific plaque at the proximal left internal carotid artery with les s than 50% stenosis Less than 50% stenosis left external carotid artery Patent antegrade vertebral arteries bilaterally No change from a previous exam of January 01, 2016 Ordering Physician: Shima Allen Referring Physician: Shima Allen Performed By: Luís Singh RVT
== END | disposition home or self-care (01) ==
LOC: CVS 07:33
PROVIDERS: PCP Internal Medicine; Referring Provider Internal Medicine; Visit Provider Internal Medicine
DX: I65.23 Occlusion and stenosis of bilateral carotid arteries (principal)
CPT/HCPCS: 93880

== ENCOUNTER → 2024-07-12 | Outpatient (CLI) | payer MEDICARE, OTHER, SELFPAY ==
[2024-07-12 07:28] LABS: Absolute Lymphocyte Count 2.28 X10^3/uL (0.83-4.51); Absolute Neutrophil Count 3.9 X10^3/uL (2.0-7.7); Basophil# 0.06 X10^3/uL; Basophil% 0.8 % (0-1); Eosinophil# 0.28 X10^3/uL; Eosinophils% 3.9 % (0-5); Hematocrit 41.7 % (40-54); Hemoglobin 13.7 g/dL (13.0-16.5); Lymphocyte # 2.28 X10^3/ul (0.83-4.51); Lymphocyte % 31.9 % (19-41); Mean Corp Hgb Conc 32.9 g/dL (32-36); Mean Corpuscular Hgb 29.9 pg (27.0-32.0); Mean Platelet Vol. 11.2 fl (6.2-12.0); Monocyte% 8.4 % (0-10); NRBC Flagged by Analyzer 0 % (0-5); Neutrophil # 3.89 X10^3/uL (2.7-7.7); Neutrophil % 54.6 % (47-70); Platelet Count 227 K/mm3 (150-450); RBC Distribution Width CV 13.1 % (11.6-14.6); RBC Distribution Width SD 43.8 fl (35.1-43.9); Red Blood Count 4.58 M/mm3 (4.6-6.2); White Blood Count 7.1 K/mm3 (4.4-11.0)
[2024-07-12 08:05] LABS: AST(SGOT) 22 U/L (15-37); Alanine Aminotransfer ALT/SGPT 22 U/L (16-61); Albumin, Serum 3.8 g/dL (3.2-5.0); Alkaline Phosphatase 51 U/L (45-117); Anion Gap 6 (5-15); BUN 16 mg/dL (7-18); BUN/Creat Ratio 17.2 RATIO (10-20); Calcium,Total 9.9 mg/dL (8.5-10.1); Chloride 103 mmol/L (98-107); Cholesterol 171 mg/dL (200); Creatinine, Serum 0.93 mg/dL (0.70-1.30); EST Glomerular Filtration Rate 83 mL/min (>60); Est Glom Filt Rate - Afr Amer 100 mL/min (>60); Globulin 3.7 g/dL (2.2-4.2); Glucose 121 mg/dL (74-106); High Density Lipoprotein 83 mg/dL; Potassium 3.6 mmol/L (3.5-5.1); Protein, Total 7.5 g/dL (6.4-8.2); Sodium Level 137 mmol/L (136-145); Triglycerides 65 mg/dL; Very Low Density Lipoprotein 13 mg/dL (5-40)
[2024-07-12 08:14] LABS: Vitamin D,25 Hydroxy 91.4 ng/mL
[2024-07-12 10:23] LABS: Microalbumin,Random Urine < 5.0 mg/L (NO RANGE EST.)
== END | disposition home or self-care (01) ==
LOC: LAB 07:04
PROVIDERS: PCP Internal Medicine; Referring Provider Internal Medicine; Visit Provider Internal Medicine
DX: E78.5 Hyperlipidemia, unspecified (principal); E11.9 Type 2 diabetes mellitus without complications; E55.9 Vitamin D deficiency, unspecified
CPT/HCPCS: 36415; 80053; 80061; 82043; 82306; 82570; 85025

== ENCOUNTER → 2025-02-06 | Outpatient (CLI) | payer MEDICARE, OTHER, SELFPAY ==
[2025-02-06 06:29] LABS: Bacteria 0 SEEN /hpf (None Seen); Mucous, Urine 0 SEEN /hpf (<or=2+); Red Blood Cells-Urine 0 SEEN /hpf (0-5); Squamous Epithelial Cells - UA 0 SEEN /hpf (0-5); White Blood Cells 0 SEEN /hpf (0-5)
[2025-02-06 07:37] LABS: Color, Urine Yellow (Yellow); Glucose, Dipstick Normal (Normal); Ketone-Dipstick Negative (Negative); Leukocyte Esterase-Dipstick Negative /ul (Negative); Nitrite-Dipstick Negative (Negative); Occult Blood-Urine Negative /ul (Negative); Protein-Dipstick 15 mg/dl (Negative); Urine Bilirubin Dipstick Negative (Negative); Urine Clarity Clear (Clear); Urine Urobilinogen Normal (Normal); Urine pH 6.5 (5.0 - 8.0)
[2025-02-06 07:39] LABS: Absolute Lymphocyte Count 2.21 X10^3/uL (0.83-4.51); Absolute Neutrophil Count 5.1 X10^3/uL (2.0-7.7); Basophil# 0.06 X10^3/uL; Basophil% 0.7 % (0-1); Eosinophil# 0.29 X10^3/uL; Eosinophils% 3.4 % (0-5); Hemoglobin 13.5 g/dL (13.0-16.5); Lymphocyte # 2.21 X10^3/ul (0.83-4.51); Lymphocyte % 26.2 % (19-41); Mean Corp Hgb Conc 33.8 g/dL (32-36); Mean Corpuscular Hgb 30.5 pg (27.0-32.0); Mean Corpuscular Volume 90.3 fL (80-94); Mean Platelet Vol. 10.8 fl (6.2-12.0); Monocyte# 0.72 X10^3/uL; Monocyte% 8.5 % (0-10); NRBC Flagged by Analyzer 0 % (0-5); Neutrophil # 5.12 X10^3/uL (2.7-7.7); Neutrophil % 60.8 % (47-70); Platelet Count 222 K/mm3 (150-450); RBC Distribution Width CV 13.9 % (11.6-14.6); RBC Distribution Width SD 46.1 fl (35.1-43.9); Red Blood Count 4.43 M/mm3 (4.6-6.2); White Blood Count 8.4 K/mm3 (4.4-11.0)
[2025-02-06 08:16] LABS: Microalbumin,Random Urine < 12.0 mg/L (NO RANGE EST.); Microalbumin:Creatinine Ratio UNABLE TO CALCULATE mg/g CRE
[2025-02-06 08:39] LABS: ALB/GLOB Ratio 1.5 RATIO (0.9-2.4); AST(SGOT) 21 U/L (<=37); Alanine Aminotransfer ALT/SGPT 16 U/L (<=46); Albumin, Serum 4.4 g/dL (3.4-4.8); Alkaline Phosphatase 42 U/L (40-129); Anion Gap 10 (5-15); BUN 16 mg/dL (4-19); BUN/Creat Ratio 16.3 RATIO (10-20); Calcium,Total 9.8 mg/dL (7.6-11.0); Carbon Dioxide 26.5 mmol/L (21.0-32.0); Chloride 102 mmol/L (98-108); Cholesterol 174 mg/dL (<=200); Creatinine, Serum 0.99 mg/dL (0.70-1.20); EST Glomerular Filtration Rate 76 (>60); Globulin 2.9 g/dL (2.2-4.2); Glucose 99 mg/dL (70-99); High Density Lipoprotein 70 mg/dL; Low Density Lipoprotein Calc. 91 mg/dL; Potassium 4.2 mmol/L (3.3-5.1); Protein, Total 7.3 g/dL (5.9-8.4); Sodium Level 139 mmol/L (133-145); Triglycerides 63 mg/dL; Very Low Density Lipoprotein 13 mg/dL (5-40); cholesterol:hdl ratio screen 2.47
== END | disposition home or self-care (01) ==
LOC: LAB 06:23
PROVIDERS: PCP Internal Medicine; Referring Provider Internal Medicine; Visit Provider Internal Medicine
DX: E78.5 Hyperlipidemia, unspecified (principal); E11.9 Type 2 diabetes mellitus without complications; E55.9 Vitamin D deficiency, unspecified
CPT/HCPCS: 36415; 80053; 80061; 81001; 82043; 82306; 82570; 84443; 85025

== ENCOUNTER → 2025-09-28 | Outpatient (CLI) | payer MEDICARE, OTHER, SELFPAY ==
--- OUTSIDE RECORDS SUMMARY | 2025-09-28 06:05 | XMS RPT_ITS | CCD ---
Author Organization [facility] CliniSyal Care Team Providers Care Press Secretary Name Role Phone Ana ANDREA, Madalyn A Unavailable Unavailable MD Pittman Cyril S Unavailable Carolina, Lara Unavailable Unavailable Lara Carolina Unavailable Unavailable Amira Torres Y Unavailable Unavailable MD Pittman Cyril S Unavailable Carolina, Lara Unavailable Unavailable Lara Carolina Unavailable Unavailable Lara Carolina Unavailable Unavailable Dr. Shima Allen Primary Care Provider 1([facility] )[phone] Dr. Shima Allen Referring Provider [phone] Dr. Larry Pittman Attending Provider 1([facility])[phone] Shima Allen DO Attending Unavailable Shima Allen DO Consulting Unavailable Fast , Mya A Referring Unavailable Dr. Shima Allen Primary Care Provider [phone] Dr. Shima Allen Referring Provider 1([facility])[phone] Dr. Manju Spring Attending Provider Mary Jo SALES ENABLEMENT ANALYST, SALES ENABLEMENT ANALYST-Melissa Norton Attending Provider 1([facility])[phone] Dr. Gabbie Valero Attending Provider Dr. Shima Allen DO Primary Care Provider Dr. Shima Allen DO Attending Provider Dr. Shima Allen DO Referring Provider [phone] Trell ARTEAGA-Lin Torres Attending Provider 1([facility])[phone] Shima Allen Referring Unavailable Shima Allen Primary Care Unavailable Lin Cai NP Attending Unavailable Shima Allen Primary Care Unavailable Shima Allen Attending Unavailable Shima Allen Referring Unavailable Alejandro, Shima Primary Care Unavailable Shima Allen Attending Unavailable Shima Allen Referring Unavailable Medications Current Medications Medication Drug Class(es) Dates Sig (Normalized) Sig (Original) aspirin 81 mg chewable tablet (20 sources) Platelet Aggregation Inhibitor, Nonsteroidal Anti-inflammatory Drug Start: 02-01-2014 take 1 tablet by mouth once daily Aspirin 81 MG tablet,chewable Active 81 mg PO DAILY@0800 February 01, 2014 12:00am Start: 11-15-2003 take 1 tablet by malcolm th once daily ASPIRIN 81 MG TABS One tablet by mouth daily ASPIRIN [id number] Danisha Branch Melendez Start: 11-15-2003 take 1 tablet by malcolm th once daily ADULT ASPIRIN EC LOW STRENGTH 81 MG TBEC Take one (1) tablet by mouth daily ASPIRIN [id number] Claude S Lara BIRCH Start: 11-15-2003 take 1 tablet by malcolm th once daily ASPIRIN EC 81 MG TBEC One tablet by mouth daily ASPIRIN [id number] Amira Torres cholecalciferol 0.025 mg oral tablet (3 sources) Vitamin D Start: 01-11-2024 take 1 tablet by mouth two times weekly Cholecalciferol (Vitamin D3) 25 mcg (1,000 unit) tablet Active 25 ug PO TWICE A WEEK January 11, 2024 12:00am cinnamon bark 500 mg oral capsule (18 sources) Start: 12-16-2018 End: 01-07-2023 take 1 capsule by mouth once daily Cinnamon Bark 500 mg capsule Active 500 mg PO DAILY January 07, 2023 1:09pm Start: 12-16-2018 End: 01-07-2023 Cinnamon Bark Discontinued M G PO December 16, 2018 1:00am January 07, 2023 1:11pm take 1 tablet by malcolm th once daily CINNAMON 500 MG CAPS One tablet by mouth daily CINNAMON [id number] Alysia Rivera LPN [place] 7-Ili-Ryg-Fish Oil (5 sources) Start: 12-21-2019 take 300-1000 mg by mouth once daily [place] 0-Avn-Rwq-Fish Oil (Fish Oil) 300-1,000 mg capsule Active 1 CAP PO DAILY December 21, 2019 9:43am Start: 12-21-2019 End: 01-11-2024 [place] 4-Zqe-Zeb-Fish Oil (Fi sh Oil) 300-1,000 mg capsule Discontinued 1 NMA PO DAILY December 21, 2019 1:00am January 11, 2024 8:37am Start: 12-21-2019 End: 01-11-2024 take 300-1000 mg by mouth once daily [place] 9-Map-Ixb-Fish Oil (Fish Oil) 300-1,000 mg capsule Discontinued 1 CAP PO DAILY December 21, 2019 1:00am January 11, 2024 8:37am Start: 12-21-2019 take 300-1000 mg by mouth once daily [place] 5-Fxf-Kjh-Fish Oil (Fish Oil) 300-1,000 mg capsule Active 1 CAP PO DAILY December 21, 2019 1:00am Garlic (14 sources) Non-Standardized Food Allergenic Extract Start: 12-19-2020 take 500 mg by mouth once daily Garlic Active 500 MG PO DAILY December 19, 2020 10:10am Start: 12-19-2020 take 1 capsule by mo [facility] once daily Garlic 500 mg capsule Active 500 mg PO DAILY December 19, 2020 1:00am Start: 12-19-2020 take 500 mg by mouth once lakisha y Garlic Active 500 MG PO DAILY December 19, 2020 1:00am GARLIC TABS 1000 mg, once a day GARLIC TABS [id number] Alysia Nicole COO GARLIC TABS 1000 mg, once a day GARLIC TABS [id number] Alysia Nicole COO hydroCHLOROthiazide 12.5 mg oral tablet (20 sources) Thiazide Diuretic Start: 01-11-2024 End: 12-04-2024 take 1 tablet by mouth once daily in the morning Hydrochlorothiazide 12.5 mg tablet Active 12.5 mg PO EVERY MORNING December 04, 2024 1:04pm Start: 12-23-2021 End: 01-11-2024 take 1 tablet by mouth once daily Hydrochlorothiazide 25 mg tablet Discontinued 25 mg PO daily November 26, 2023 10:26am January 11, 2024 8:37am Start: 11-26-2015 End: 12-23-2021 take 1 tablet by mouth once daily Hydrochlorothiazide 12.5 mg tablet Discontinued 12.5 mg PO daily December 01, 2021 10:52am December 23, 2021 10:14am 24 hr metFORMIN hydrochloride 750 mg extended release oral tablet (20 sources) Biguanide Start: 12-16-2017 take 1 tablet by mouth twice daily Metformin 750 mg tablet extended release 24 hr Active 750 mg PO TWICE A DAY December 16, 2017 1:00am Start: 02-01-2014 End: 12-16-2017 take 1 tablet by mouth twice daily at mealtime Metformin 500 MG tablet Discontinued 500 mg PO TWICE DAILY WITH MEALS February 01, 2014 12:00am December 16, 2017 10:25am Start: 04-12-2012 take 1 tablet by malcolm th twice daily METFORMIN HCL ER 750 MG [id number] One tablet by mouth twice daily METFORMIN HCL [id number] Larry Pittman MD Start: 01-10-2004 End: 04-12-2012 take 1 tablet by mouth twice daily METFORMIN HCL 500 MG TABS One tablet by mouth twice daily METFORMIN HCL [id number] Klaudia Atkinson RN METFORMIN HCL TA BS 750 mg , two times a day METFORMIN HCL TABS [id number] Alysia Rivera LPN Multivitamin (Daily Multi-Vitamin) tablet (5 sources) Start: 12-21-2019 take 1 tablet by mouth once daily Multivitamin (Daily Multi-Vitamin) tablet Active 1 TABLET PO DAILY December 21, 2019 9:43am Start: 12-21-2019 Multivitamin ( Daily Multi-Vitamin) tablet Active 1 {tbl} PO DAILY December 21, 2019 1:00am Start: 12-21-2019 take 1 tablet by malcolm th once daily Multivitamin (Daily Multi-Vitamin) tablet Active 1 TABLET PO DAILY December 21, 2019 1:00am [place]-3 Fatty Acids (1 source) Start: 01-11-2024 take 1000 mg by mouth once daily [place]-3 Fatty Acids Active 1000 MG PO DAILY January 11, 2024 12:00am [place]-3 Fatty Acids 1,000 mg capsule (2 sources) Start: 01-11-2024 take 1 capsule by mouth once daily [place]-3 Fatty Acids 1,000 mg capsule Active 1000 mg PO DAILY January 11, 2024 12:00am SITagliptin 100 mg oral tablet (1 source) Dipeptidyl Peptidase 4 Inhibitor Start: 03-15-2025 take 1 tablet by mouth once daily Sitagliptin Phosphate (Januvia) 100 mg tablet Active 100 mg PO daily March 15, 2025 12:00am Vit C,K-Ru-Bihnk-Lutei n-Zeaxan (Preservision Areds-2) 250-90-40-1 mg capsule (3 sources) Start: 01-11-2024 take 2 capsules by mouth once daily at bedtime Vit C,P-Ai-Scsmd-Lutei n-Zeaxan (Preservision Areds-2) 250-90-40-1 mg capsule Active 1 {tbl} PO every day in the morning and at bedtime January 11, 2024 12:00am Start: 01-11-2024 Vit C,E-Zn-Forklift Mechanic hy-Ajbkgk-Qfexyn (Preservision Areds-2) 250-90-40-1 mg capsule Active 1 TABLET PO every day in the morning and at bedtime January 11, 2024 12:00am vitamin k2 0.1 mg oral capsu le (7 sources) Start: 01-11-2024 Vitamin K2 100 mcg capsule Active 100 ug PO TWICE A WEEK January 11, 2024 8:38am Start: 01-07-2023 End: 01-11-2024 Vitamin K2 100 mcg capsule D iscontinued 100 ug PO DAILY January 07, 2023 12:00am January 11, 2024 8:39am Completed/Discontinued Medications Medication Drug Class(es) Dates Sig (Normalized) Sig (Original) azithromycin 250 mg oral tablet (5 sources) Macrolide Antimicrobial Start: 02-01-2014 End: 12-16-2017 take 1 tablet by mouth once daily Azithromycin 250 MG tablet Discontinued 250 mg PO DAILY February 01, 2014 12:00am December 16, 2017 10:26am CHOLESTYRAMINE (18 sources) Bile Acid Sequestrant Start: 05-12-2010 End: 11-14-2013 take 1 dose by mouth twice daily QUESTRAN 4 GM PACK /9G 1 packet by mouith twice daily CHOLESTYRAMINE [id number] Larry Pittman MD Start: 05-12-2010 End: 11-14-2013 take 1 dose by mouth twice daily QUESTRAN 4 GM PACK /9G 1 packet by mouith twice daily CHOLESTYRAMINE [id number] Larry Pittman MD Start: 05-12-2010 take 1 dose by mouth twice daily QUESTRAN 4 GM PACK /9G 1 packet by mouit twice daily CHOLESTYRAMINE [id number] Larry Pittman MD COLESTIPOL HCL (18 sources) Bile Acid Sequestrant End: 12-17-2011 COLESTID 1 GM TABS five tabs twice a day COLESTIPOL HCL [id number] Lance Demarco MD End: 12-17-2011 COLESTID 1 GM TABS five tabs twice a day COLESTIPOL HCL [id number] Lance Demarco MD COLESTID 1 GM TA BS five tabs twice a day COLESTIPOL HCL [id number] Alysia Rivera LPN Creatine (16 sources) Start: 11-26-2015 End: 06-14-2017 CREATINE POWD 1 tbsp mixed i n water daily CREATINE MONOHYDRATE [id number] Mora Durbin PA-C Start: 11-26-2015 CREATINE POWD 1 tbsp mixed in water daily CREATINE MONOHYDRATE [id number] Larry Pittman MD famotidine 20 mg oral tablet (5 sources) Histamine-2 Receptor Antagonist Start: 02-01-2014 End: 12-16-2017 take 1 tablet by mouth twice daily Famotidine 20 MG tablet Discontinued 20 mg PO TWICE A DAY February 01, 2014 12:00am December 16, 2017 10:26am fish oil (5 sources) take 1 tablet by mouth once daily FISH OIL 300 MG CAPS One tablet by mouth daily OMEGA-3 FATTY ACIDS [id number] Alysia Rivera LPN 24 hr isosorbide mononitrate 30 mg extended release oral tablet (18 sources) Nitrate Vasodilator Start: 12-26-2010 End: 11-14-2013 take 1 tablet by mouth once daily ISOSORBIDE MONONITRATE ER 30 MG [id number] One tablet by mouth daily (Imdur) ISOSORBIDE MONONITRATE [id number] Larry Pittman MD losartan potassium 100 mg oral tablet (20 sources) Angiotensin 2 Receptor Jose Start: 05-06-2018 End: 12-21-2024 take 1 tablet by mouth once daily Losartan 100 mg tablet Discontinued 100 mg PO daily December 07, 2023 10:35am December 21, 2024 12:04pm lovastatin 40 mg oral tablet (20 sources) HMG-CoA Reductase Inhibitor Start: 04-21-2012 End: 12-04-2024 take 1 tablet by mouth once daily Lovastatin 40 mg tablet Discontinued 40 mg PO DAILY December 07, 2023 10:35am December 04, 2024 1:04pm Start: 02-10-2010 End: 04-12-2012 take 1 tablet by mouth once daily at bedtime LOVASTATIN 40 MG TABS One tablet by mouth daily at bedtime Tu, wed, Wed, Sat and Sun 20mg Mon & Thurs LOVASTATIN [id number] Larry Pittman MD Start: 01-31-2010 take 1 tablet by malcolm th once daily LOVASTATIN 20 MG TABS One tablet by mouth daily LOVASTATIN [id number] Mora Durbin PA-C meclizine hydrochloride 25 mg oral strip (18 sources) Antiemetic Start: 04-12-2012 End: 11-14-2012 take 1 tablet by mouth four times daily as needed ANTIVERT 25 MG TABS One tablet by mouth four times daily as needed MECLIZINE HCL [id number] Lance Demarco MD Start: 04-12-2012 End: 11-14-2012 take 1 tablet by mouth four times daily as needed ANTIVERT 25 MG TABS One tablet by mouth four times daily as needed MECLIZINE HCL [id number] Klaudia Atkinson RN 24 hr metoprolol succinate 100 mg extended release oral tablet (20 sources) beta-Adrenergic Jose Start: 02-01-2014 End: 12-04-2024 Metoprolol Succinate 100 mg tablet extended release 24 hr Discontinued 0 .ROUTE .COMPLEX November 14, 2024 9:30am December 04, 2024 1:04pm TAKE 1 TABLET DAILY take 1 tablet by mouth once lakisha y TOPROL XL 100 MG [id number] One tablet by mouth daily METOPROLOL SUCCINATE [id number] Larry Pittman MD take 1 tablet by mouth once lakisha y TOPROL XL 100 MG [id number] One tablet by mouth daily METOPROLOL SUCCINATE [id number] Larry Pittman MD MULTIPLE VITAMIN (5 sources) take 1 tablet by mouth once daily MULTIVITAMINS TABS One tablet by mouth daily MULTIPLE VITAMIN [id number] Alysia Rivera LPN MULTIPLE VITAMIN (4 sources) take 1 tablet by mouth once daily MULTIVITAMINS TABS One tablet by mouth daily MULTIPLE VITAMIN [id number] Alysia Rivera LPN nitroglycerin 0.4 mg sublingual tablet (14 sources) Nitrate Vasodilator Start: 12-09-19 End: 01-08-20 Nitroglycerin (Nitrostat) 0.4 mg tablet, sublingual Discontinued 0.4 mg SL Q5M as needed December 09, 2017 1:00am January 07, 2023 1:10pm Start: 12-09-2017 End: 01-07-2023 Nitroglycerin (Nitrostat) 0. 4 mg tablet, sublingual Discontinued 0.4 MG SL Q5M December 09, 2017 1:00am January 07, 2023 1:10pm Start: 10-23-2004 NITROSTAT 0.4 MG SUBL 1 tablet under tongue every 5 min up to 3 X NITROGLYCERIN [id number] Danisha Melendez OLMESARTAN MEDOXOMIL TABS (18 sources) Angiotensin 2 Receptor Jose End: 12-17-2011 BENICAR TABS 30 mg tab once a day OLMESARTAN MEDOXOMIL TABS [id number] Lance Demarco MD End: 12-17-2011 BENICAR TABS 30 mg tab once a day OLMESARTAN MEDOXOMIL TABS [id number] Lance Demarco MD BENICAR TABS 30 mg tab once a day OLMESARTAN MEDOXOMIL TABS [id number] Alysia Rviera LPN OMEGA-3 FATTY ACIDS (4 sources) take 1 tablet by mouth once daily FISH OIL 300 MG CAPS One tablet by mouth daily OMEGA-3 FATTY ACIDS [id number] Alysia Nicole COO pravastatin sodium 10 mg oral tablet (18 sources) HMG-CoA Reductase Inhibitor End: 1 take 1 tablet by mouth once daily PRAVASTATIN SODIUM 10 MG TABS One tablet by mouth daily PRAVASTATIN SODIUM [id number] Alysia Rivera COO valsartan 320 mg oral tablet (20 sources) Angiotensin 2 Receptor Jose Start: 4 End: 8 Valsartan 320 MG tablet Discontinued 160 mg PO TWICE A DAY December 16, 2017 10:27am May 06, 2018 1:24pm Start: 02-01-2014 End: 05-06-2018 take 160 mg by mouth twice daily Valsartan Discontinued 160 MG PO TWICE A DAY December 16, 2017 10:27am May 06, 2018 1:24pm Start: 09-23-2009 DIOVAN 320 MG TABS 1/2 tablet 2 X daily VALSARTAN [id number] Larry Pittman MD Vit C-E-Zinc Blh-Mjdrwu-Jfdtnq ([facility]) 50 mg-15 unit- 4.5 mg-2.5 mg tablet,chewable (4 sources) Start: 01-07-2023 End: 01-11-2024 take 1 tablet by mouth once daily Vit C-E-Zinc Avc-Xtissh-Bxqvuy ([facility]) 50 mg-15 unit- 4.5 mg-2.5 mg tablet,chewable Discontinued 1 {tbl} PO DAILY January 07, 2023 12:00am January 11, 2024 8:34am Start: 01-07-2023 End: 01-11-2024 take 1 tablet by mouth once daily Vit C-E-Zinc Zdi-Easdjx-Wrkoyl ([facility]) 50 mg-15 unit- 4.5 mg-2.5 mg tablet,chewable Discontinued 1 TABLET PO DAILY January 07, 2023 12:00am January 11, 2024 8:34am Start: 01-07-2023 take 1 tablet by malcolm th once daily Vit C-E-Zinc Kel-Nptlds-Dyppnm ([facility]) 50 mg-15 unit- 4.5 mg-2.5 mg tablet,chewable Active 1 TABLET PO DAILY January 07, 2023 12:00am Problems Active Problems Problem Classification Problem Date Documented Da te Episodic/Chronic Blindness and vision defects (6 sources) Low vision, both eyes ; Translations: [Unqualified visual loss, both eyes] 11-17-2023 Chronic Cardiac dysrhythmias (15 sources) Paroxysmal ventricular tachycardia; Translations: [Ventricular tachycardia] Onset: 12-26-2010 12-26-2010 Chronic Comment on above: EPS 2008 unsustained polymorphic ventricular tachycardia Coronary atherosclerosis and other heart disease (20 sources) Coronary atherosclerosis; Translations: [Coronary arteriosclerosis] Onset: 12-26-2010 Resolved: 05-21-2016 12-26-2010 Chronic Diabetes mellitus with complications (9 sources) Peripheral circulatory disorder associated with type 2 diabetes mellitus; Translations: [Type 2 diabetes mellitus with diabetic peripheral angiopathy without gangrene] Onset: 12-26-2010 12-26-2010 Chronic Disorders of lipid metabolism (18 sources) Hyperlipidemia; Translations: [Hyperlipidemia, unspecified] Onset: 12-26-2010 12-26-2010 Chronic Essential hypertension (17 sources) Hypertensive disorder; Translations: [Essential hypertension] Onset: 12-26-2010 12-26-2010 Chronic Other circulatory disease (9 sources) Disorder of carotid artery; Translations: [Occlusion and stenosis of unspecified carotid artery] Onset: 05-21-2015 05-21-2015 Chronic Other eye disorders (4 sources) Ptosis of eyelid; Translations: [Unspecified ptosis of bilateral eyelids] 11-17-2023 Episodic Other eye disorders (2 sources) Unspecified ptosis of bilateral eyelids; Translations: [Ptosis of eyelid, unspecified] 11-17-2023 Episodic Unclassified (4 sources) Long-term drug therapy; Translations: [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] Onset: 12-26-2010 12-26-2010 Past or Other Problems Problem Classification Problem Date Documented Da te Episodic/Chronic Coronary atherosclerosis and other heart disease (11 sources) Presence of aortocoronary bypass graft; Translations: [Aortocoronary bypass status] Onset: 11-20-2003 12-26-2010 Episodic Neoplasms of unspecified nature or uncertain behavior (9 sources) Neoplasm of uncertain behavior of skin; Translations: [Neoplasm of uncertain behavior of skin] 11-06-2009 Episodic Other aftercare (5 sources) Other jail (current) drug therapy; Translations: [Other jail (current) drug therapy] Onset: 12-26-2010 12-26-2010 Episodic [...] Results Test Name Value Interpretation Reference Range Facility Cardiology Visit Reporton Cardiology Visit Report [facility] [address] [place] [address]. [address] [place] [address] OFFICE VISIT Date of Service: 03/15/25 MR#: [id number] Acct: [id number] Name: GABBIE OLIVEIRA Rep #: [id number] : 1940 Provider: KATIE valadez Age/Sex: 84/M Location: [facility] Status: Signed HPI HPI History of Present Illness Details: GABBIE OLIVEIRA, is a 84 M who presents to the office today for a cardiovascular follow-up. He has a history of coronary artery disease with bypass surgery in 2003. He had an PARRY to the LAD, SVG to the PDA of the circumflex and diagonal branch of the anterior descending. He also has exercise- induced nonsustained ventricular tachycardia, hypertension and hyperlipidemia. From a cardiac standpoint, the patient is doing well. He denies any palpitations, chest pain, pressure or heaviness. He denies SOB, Orthopnea, and PND. He does not have bleeding issues; no blood in urine, stool, or nosebleeds. He denies any decrease in energy level, myalgias, or claudication. He does not have edema, or sudden weight gain. He denies lightheadedness, dizziness, syncopal or near syncopal episodes, and headaches. He continues to walk 5-10 miles per day. He states his blood pressures average 120-130/60-70's. 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 Accompanied by: Self Is patient in pain?: No Allergies No Known Allergies Allergy (Verified 03/15/25 09:15) Medications ???Medication ???Instructions ???Recorded ???Confirmed ???Type aspirin 81 mg chewable tablet 81 mg PO DAILY@0800 02/01/1403/15 History metformin 750 mg tablet,extended 750 mg PO BID 12/16/17 03/15/25 Hi story release 24 hr multivitamin (Daily Multi-Vitamin 1 tab PO DAILY 12/21/19 03/15/25 History tablet) garlic 500 mg capsule 500 mg PO DAILY 12/19/20 03/15/25 History cinnamon bark 500 mg capsule 500 mg PO DAILY 01/07/23 03/15/25 History cholecalciferol (vitamin D3) 25 25 mcg PO 2XW 01/11/24 03/15/25 Hi story mcg (1,000 unit) tablet omega-3 fatty acids 1,000 mg 1,000 mg PO DAILY 01/11/24 5 History capsule vit C 250 mg-vit E 90 mg-zinc 40 1 tab PO QAM AND QHS 01/11/2402/16 History mg-copper 1 bm-soaihq-ahomwb capsule (PreserVision AREDS-2) vitamin K2 100 mcg capsule 100 mcg PO 2XW 01/11/24 03/15/25 H istory hydrochlorothiazide 12.5 mg tablet 12.5 mg PO QAM #90 tabs 12/04/24 03/15/25 Rx lovastatin 40 mg tablet 40 mg PO DAILY #90 tabs 12/04/24 0 03/15/25 Rx metoprolol succinate 100 mg See Rx Instructions .Route 5 03/15/25 Rx tablet,extended release 24 hr .COMPLEX #90 tabs losartan 100 mg tablet 100 mg PO QDAY #90 tabs 12/21/24 0 03/15/25 Rx sitagliptin phosphate 100 mg 100 mg PO QDAY 03/15/25 03/15/25 H istory tablet (Januvia) Have you fallen in the past year?: No PFSH Medical History Essential (primary) hypertension Atherosclerosis of coronary artery of [place] heart without angina pectoris Paroxysmal ventricular tachycardia Carotid artery disease DM2 (diabetes mellitus, type 2) HLD (hyperlipidemia) Surgical History History of electrophysiologic study (12/29/07) H/O coronary artery bypass surgery (11/20/03) History of left heart catheterization (12/28/07) Family History Unknown No problems noted. Social History Smoking Status: Former smoker how long ago did patient quit smokin alcohol intake: never substance use type: does not use caffeine: Yes Type: coffee Number of servings: 4 additional social history: pt denies vaping, denies marijuana use, denies edibles, stopped smoking 30 or more years ago, denies ibuprofen use does take aspirin daily ROS Const Const: Negative for fatigue, weakness, headache(s), daytime sleepiness or difficulty sleeping ENT ENT: Negative for headache(s), dizziness or Nosebleed/epistaxis Cardio Chest Pain: No Palpitations: No Edema: None Resp Respiratory: Negative for SOB with activity, SOB at rest, SOB orthopnea SOB lying down or Cough GI GI: Negative nausea, vomiting or heartburn Neuro Neuro: Negative for dizziness, lightheadedness, near syncope, headache(s) or weakness Endo Endo: Negative for fatigue Cardiology Exam Const Appearance: cooperative, healthy appearing, no acute distress, well developed and well groomed Nutritional Appearance: a (more content not included)... Normal [facility] [id number] 02-09-2025 [facility] Misc. COMMENT Normal . [facility] Comment on above: Order Comment: [id number] APOLIPOPROTEIN B RED RMT Result Comment: Test Ordered: [id number] Apolipoprotein B Apolipoprotein B 74 mg/dL Reference Range: <90 Desirable < 90 Borderline High 90 - 99 High 100 - 130 Very High >130 ASCVD RISK THERAPEUTIC TARGET CATEGORY APO B (mg/dL) Very High Risk <80 (if extreme risk <70) High Risk <90 Moderate Risk <90 Performed at: [facility] [address] [id number] Supervisor Instrument Maintenance: Juancarlos Galicia MD, Phone: [phone] Performed at: [facility] [address] [id number] Supervisor Instrument Maintenance: Jerzy Chin PhD, Phone: [phone] Performed By: #### L 500.4100, L501.9520, L100.0100, L502.0250, L3410.9992, L400.0001, L506.1001, L500.4050 #### [facility] [address] [place] [address]. [place], [address] Absolute lymphocyte countOrd ered By: Shima Allen on 02-06-2025 Lymphocytes Auto (Unsp spec) [#/Vol] 2.21 10*3/uL 0.83-4.51 [facility] Absolute neutrophil countOrd ered By: Shima Allen on 02-06-2025 Neutrophils (Bld) [#/Vol] 5.1 10*3/uL 2.0-7.7 [facility] Albumin DL <= 20 mg/L (U) [M ass/Vol]Ordered By: Shima Allen on 02-06-2025 Urine Random Microalbumin < 12.0 mg/L NO RANGE EST. [facility] Anion gap in Serum or Plasma Ordered By: Shima Allen on 02-06-2025 Anion gap [Moles/Vol] 10 mmol/L 5-15 [facility] Automated lymphocyte count a s percentage of total leukocytesOrdered By: Shimaameena Allen on 02-06-2025 Lymphocytes/100 WBC Auto (Unsp spec) 26.2 % 19-41 [facility] BUN/creatinine ratioOrdered By: Shima Allen on 02-06-2025 Urea nitrogen/Creatinine [Mass ratio] 16.3 mg/mg 10-20 [facility] Basophil percentageOrdered B y: Shima Alejandro on 02-06-2025 Basophils/100 WBC (Bld) 0.7 % 0-1 [facility] Bilirubin Test strip Ql (U)O rdered By: Shima Allen on 02-06-2025 Bilirubin Ql (U) Negative Negative [facility] Bilirubin, totalOrdered By: Shima Allen on 02-06-2025 Bilirubin [Mass/Vol] 0.40 mg/dL 0.00-1.30 [facility] [facility] W/Diff, Automatedon 01-17 Absolute Lymph 2.21 X10 3/uL Normal 0.83-4.51 [facility] Comment on above: Performed By: #### L 500.4100, L501.9520, L100.0100, L502.0250, L3410.9992, L400.0001, L506.1001, L500.4050 #### [facility] [address] [place], [address] Absolute Neut 5.1 X10 3/uL Normal 2.0-7.7 [facility] Comment on above: Performed By: #### L 500.4100, L501.9520, L100.0100, L502.0250, L3410.9992, L400.0001, L506.1001, L500.4050 #### [facility] [address] [place], [address] Basophils/100 WBC (Bld) 0.7 % Normal 0-1 [facility] Comment on above: Performed By: #### L 500.4100, L501.9520, L100.0100, L502.0250, L3410.9992, L400.0001, L506.1001, L500.4050 #### [facility] [address] [place], [address] Eosinophils/100 WBC (Bld) 3.4 % Normal 0-5 [facility] Comment on above: Performed By: #### L 500.4100, L501.9520, L100.0100, L502.0250, L3410.9992, L400.0001, L506.1001, L500.4050 #### [facility] [address] [place], [address] Erythrocyte distribution width (RBC) [Ratio] 13.9 % Normal 11.6-14.6 [facility] Comment on above: Performed By: #### L 500.4100, L501.9520, L100.0100, L502.0250, L3410.9992, L400.0001, L506.1001, L500.4050 #### [facility] [address] [place], [address] Hematocrit (Bld) [Volume fraction] 40.0 % Normal 40-54 [facility] Comment on above: Performed By: #### L 500.4100, L501.9520, L100.0100, L502.0250, L3410.9992, L400.0001, L506.1001, L500.4050 #### [facility] [address] [place], [address] Hemoglobin (Bld) [Mass/Vol] 13.5 g/dL Normal 13.0-16.5 [facility] Comment on above: Performed By: #### L 500.4100, L501.9520, L100.0100, L502.0250, L3410.9992, L400.0001, L506.1001, L500.4050 #### [facility] [address] [place], [address] IG% 0.400 Normal 0.0-0.9 [facility] Comment on above: Result Comment: IG% - Immature Granulocytes (promyelocytes, myelocytes and metamyelocytes) > 1% indicates that a LEFT SHIFT is Present. Performed By: #### L 500.4100, L501.9520, L100.0100, L502.0250, L3410.9992, L400.0001, L506.1001, L500.4050 #### [facility] [address] [place], [address] Lymphocytes/100 WBC (Bld) 26.2 % Normal 19-41 [facility] Comment on above: Performed By: #### L 500.4100, L501.9520, L100.0100, L502.0250, L3410.9992, L400.0001, L506.1001, L500.4050 #### [facility] [address] [place], [address] MCH (RBC) [Entitic mass] 30.5 pg Normal 27.0-32.0 [facility] Comment on above: Performed By: #### L 500.4100, L501.9520, L100.0100, L502.0250, L3410.9992, L400.0001, L506.1001, L500.4050 #### [facility] [address] [place], [address] MCHC (RBC) [Mass/Vol] 33.8 g/dL Normal 32-36 [facility] Comment on above: Performed By: #### L 500.4100, L501.9520, L100.0100, L502.0250, L3410.9992, L400.0001, L506.1001, L500.4050 #### [facility] [address] [place], [address] MCV (RBC) [Entitic vol] 90.3 fL Normal 80-94 [facility] Comment on above: Performed By: #### L 500.4100, L501.9520, L100.0100, L502.0250, L3410.9992, L400.0001, L506.1001, L500.4050 #### [facility] [address] [place], [address] Monocytes/100 WBC (Bld) 8.5 % Normal 0-10 [facility] Comment on above: Performed By: #### L 500.4100, L501.9520, L100.0100, L502.0250, L3410.9992, L400.0001, L506.1001, L500.4050 #### [facility] [address] [place], [address] Neutrophils/100 WBC (Bld) 60.8 % Normal 47-70 [facility] Comment on above: Performed By: #### L 500.4100, L501.9520, L100.0100, L502.0250, L3410.9992, L400.0001, L506.1001, L500.4050 #### [facility] [address] [place], [address] Nucleated RBC (Bld) [#/Vol] 0 10*3/uL Normal 0-5 [facility] Comment on above: Performed By: #### L 500.4100, L501.9520, L100.0100, L502.0250, L3410.9992, L400.0001, L506.1001, L500.4050 #### [facility] [address] [place], [address] Platelet mean volume (Bld) [Entitic vol] 10.8 fL Normal 6.2-12.0 [facility] Comment on above: Performed By: #### L 500.4100, L501.9520, L100.0100, L502.0250, L3410.9992, L400.0001, L506.1001, L500.4050 #### [facility] [address] [place], [address] Platelets (Bld) [#/Vol] 222 10*3/uL Normal 150-450 [facility] Comment on above: Performed By: #### L 500.4100, L501.9520, L100.0100, L502.0250, L3410.9992, L400.0001, L506.1001, L500.4050 #### [facility] [address] [place], [address] RBC (Bld) [#/Vol] 4.43 10*6/uL Low 4.6-6.2 [facility] Comment on above: Performed By: #### L 500.4100, L501.9520, L100.0100, L502.0250, L3410.9992, L400.0001, L506.1001, L500.4050 #### [facility] [address] [place], [address] RDW SD 46.1 fl High 35.1-43.9 [facility] Comment on above: Performed By: #### L 500.4100, L501.9520, L100.0100, L502.0250, L3410.9992, L400.0001, L506.1001, L500.4050 #### [facility] [address] [place], [address] WBC (Bld) [#/Vol] 8.4 10*3/uL Normal 4.4-11.0 [facility] Comment on above: Performed By: #### L 500.4100, L501.9520, L100.0100, L502.0250, L3410.9992, L400.0001, L506.1001, L500.4050 #### [facility] [address] [place], [address] Calculated very low density lipoprotein (VLDL) cholesterol measurementOrdered By: Shima Allen on 02-06-2025 Calculated very low density lipoprotein (VLDL) cholesterol measurement 13 mg/dL 5-40 [facility] VLDL Cholesterol 13 mg/dL -40 [facility] Carbon dioxide, total [Moles /volume] in Central venous bloodOrdered By: Shima Allen on 02-06-2025 CO2 [Moles/Vol] 26.5 mmol/L 21.0-32.0 [facility] Chloride assayOrdered By: Zachary Allen on 02-06-2025 Chloride [Moles/Vol] 102 mmol/L 98-108 [facility] Comprehensive Metabolic Prof ilon 02-06-2025 Albumin [Mass/Vol] 4.4 g/dL Normal 3.4-4.8 [facility] Comment on above: Performed By: #### L 500.4100, L501.9520, L100.0100, L502.0250, L3410.9992, L400.0001, L506.1001, L500.4050 #### [facility] [address] [place], [address] Albumin/Globulin [Mass ratio] 1.5 {ratio} Normal 0.9-2.4 [facility] Comment on above: Performed By: #### L 500.4100, L501.9520, L100.0100, L502.0250, L3410.9992, L400.0001, L506.1001, L500.4050 #### [facility] [address] [place], [address] ALK PHOS 42 U/L Normal 40-129 [facility] Comment on above: Performed By: #### L 500.4100, L501.9520, L100.0100, L502.0250, L3410.9992, L400.0001, L506.1001, L500.4050 #### [facility] [address] [place], [address] ALT [Catalytic activity/Vol] 16 U/L Normal <=46 [facility] Comment on above: Performed By: #### L 500.4100, L501.9520, L100.0100, L502.0250, L3410.9992, L400.0001, L506.1001, L500.4050 #### [facility] [address] [place], [address] AST [Catalytic activity/Vol] 21 U/L Normal <=37 [facility] Comment on above: Performed By: #### L 500.4100, L501.9520, L100.0100, L502.0250, L3410.9992, L400.0001, L506.1001, L500.4050 #### [facility] [address] [place], [address] Bilirubin [Mass/Vol] 0.40 mg/dL Normal 0.00-1.30 [facility] Comment on above: Performed By: #### L 500.4100, L501.9520, L100.0100, L502.0250, L3410.9992, L400.0001, L506.1001, L500.4050 #### [facility] [address] [place], [address] BUN/CRE 16.3 RATIO Normal 10-20 [facility] Comment on above: Performed By: #### L 500.4100, L501.9520, L100.0100, L502.0250, L3410.9992, L400.0001, L506.1001, L500.4050 #### [facility] [address] [place], [address] Calcium [Mass/Vol] 9.8 mg/dL Normal 7.6-11.0 [facility] Comment on above: Performed By: #### L 500.4100, L501.9520, L100.0100, L502.0250, L3410.9992, L400.0001, L506.1001, L500.4050 #### [facility] [address] [place], [address] Chloride [Moles/Vol] 102 mmol/L Normal 98-108 [facility] Comment on above: Performed By: #### L 500.4100, L501.9520, L100.0100, L502.0250, L3410.9992, L400.0001, L506.1001, L500.4050 #### [facility] [address] [place], [address] CO2 [Moles/Vol] 26.5 mmol/L Normal 21.0-32.0 [facility] Comment on above: Performed By: #### L 500.4100, L501.9520, L100.0100, L502.0250, L3410.9992, L400.0001, L506.1001, L500.4050 #### [facility] [address] [place], [address] Creatinine [Mass/Vol] 0.99 mg/dL Normal 0.70-1.20 [facility] Comment on above: Performed By: #### L 500.4100, L501.9520, L100.0100, L502.0250, L3410.9992, L400.0001, L506.1001, L500.4050 #### [facility] [address] [place], [address] GAP 10 Normal 5-15 [facility] Comment on above: Performed By: #### L 500.4100, L501.9520, L100.0100, L502.0250, L3410.9992, L400.0001, L506.1001, L500.4050 #### [facility] [address] [place], [address] GFR/1.73 sq M.predicted among non-blacks MDRD (S/P/Bld) [Vol rate/Area] 76 mL/min/{1.73_m2} Normal >60 [facility] Comment on above: Result Comment: mL/m in/1.73m2 CKD-EPI Creatinine Equation (2020) Performed By: #### L 500.4100, L501.9520, L100.0100, L502.0250, L3410.9992, L400.0001, L506.1001, L500.4050 #### [facility] [address] [place], [address] Globulin (S) [Mass/Vol] 2.9 g/dL Normal 2.2-4.2 [facility] Comment on above: Performed By: #### L 500.4100, L501.9520, L100.0100, L502.0250, L3410.9992, L400.0001, L506.1001, L500.4050 #### [facility] [address] [place], [address] Glucose [Mass/Vol] 99 mg/dL Normal 70-99 [facility] Comment on above: Performed By: #### L 500.4100, L501.9520, L100.0100, L502.0250, L3410.9992, L400.0001, L506.1001, L500.4050 #### [facility] [address] [place], [address] Potassium [Moles/Vol] 4.2 mmol/L Normal 3.3-5.1 [facility] Comment on above: Performed By: #### L 500.4100, L501.9520, L100.0100, L502.0250, L3410.9992, L400.0001, L506.1001, L500.4050 #### [facility] [address] [place], [address] Sodium [Moles/Vol] 139 mmol/L Normal 133-145 [facility] Comment on above: Performed By: #### L 500.4100, L501.9520, L100.0100, L502.0250, L3410.9992, L400.0001, L506.1001, L500.4050 #### [facility] [address] [place], [place], [id number] (138) T PROT 7.3 g/dL Normal 5.9-8.4 [facility] Comment on above: Performed By: #### L 500.4100, L501.9520, L100.0100, L502.0250, L3410.9992, L400.0001, L506.1001, L500.4050 #### [facility] [address] [place], [place], [id number] (625) Urea nitrogen [Mass/Vol] 16 mg/dL Normal 4-19 [facility] Comment on above: Performed By: #### L 500.4100, L501.9520, L100.0100, L502.0250, L3410.9992, L400.0001, L506.1001, L500.4050 #### [facility] [address] [place], [place], [id number] Creatinine Unsp time (U) [Ma ss/Vol]Ordered By: Shima Allen on 02-06-2025 Creatinine (U) [Mass/Vol] 133.00 mg/dL 39.00-259.00 [facility] Eosinophil percentageOrdered By: Shima Allen on 02-06-2025 Eosinophils/100 WBC (Bld) 3.4 % 0-5 [facility] Epithelial cells.squamous LM Ql (Urine sed)Ordered By: Shima Allen on 02-06-2025 Epithelial cells.squamous LM.HPF (Urine sed) [#/Area] 0 /[HPF] 0-5 [facility] Erythrocyte distribution wid th (RBC) [Ratio]Ordered By: Shima Allen on 02-06-2025 Erythrocyte distribution width (RBC) [Entitic vol] 46.1 fL High 35.1-43.9 [facility] Erythrocyte distribution wid th ratioOrdered By: Shima Allen on 02-06-2025 Erythrocyte distribution width (RBC) [Ratio] 13.9 % 11.6-14.6 [facility] Erythrocyte distribution wid th standard deviationOrdered By: Shima Allen on 02-06-2025 Erythrocyte distribution width (RBC) [Ratio] 46.1 fl High 35.1-43.9 [facility] GFR/1.73 sq M.predicted suyapa g non-blacks MDRD (S/P/Bld) [Vol rate/Area]Ordered By: Shima Allen on 02-06-2025 Estimated GFR (MDRD) Non-Af Amer 76 >60 [facility] Comment on above: mL/min/1.73m2 CKD-EP I Creatinine Equation (2020) Glomerular filtration rate ( GFR) estimation/1.73 sq m using serum, plasma, or whole bOrdered By: Shima Allen on 02-06-2025 GFR/1.73 sq M.predicted among non-blacks MDRD (S/P/Bld) [Vol rate/Area] 76 mL/min/{1.73_m2} >60 [facility] Comment on above: mL/min/1.73m2 CKD-EP I Creatinine Equation (2020) Glucose Ql (U)Ordered By: Zachary Allen on 02-06-2025 Urine Glucose (UA) Normal mg/dl Normal [facility] Hematocrit Auto (Bld) [Volum e fraction]Ordered By: Shima Allen on 02-06-2025 Hematocrit (Bld) [Volume fraction] 40.0 % 40-54 [facility] Hemoglobin measurementOrdere d By: Shima Allen on 02-06-2025 Hemoglobin (Bld) [Mass/Vol] 13.5 g/dL 13.0-16.5 [facility] Immature granulocytes/100 WB C Auto (Bld)Ordered By: Shima Allen on 02-06-2025 Immature granulocytes/100 WBC (Bld) 0.400 % 0.0-0.9 [facility] Comment on above: IG% - Immature Granu locytes (promyelocytes, myelocytes and metamyelocytes) > 1% indicates that a LEFT SHIFT is Present. Ketones Test strip Ql (U)Ord ered By: Shima Allen on 02-06-2025 Ketones Ql (U) Negative Negative [facility] LDL calc ser/plasOrdered By: Shima Allen on 02-06-2025 Cholesterol in LDL [Mass/Vol] 91 mg/dL [facility] Comment on above: Jftxwrrnyq=413-719 m g/dL & Higher Nneg=761 mg/dL or greater LDL Cholesterol, Calculated 91 mg/dL [facility] Comment on above: Neermfrjft=487-313 m g/dL & Higher Xuoz=442 mg/dL or greater Laboratory - Chemistry and C hemistry - challengeOrdered By: Shima Allen on 02-06-2025 AST [Catalytic activity/Vol] 21 U/L <38 [facility] Lipid Profileon 02-06-2025 CHOL:HDL 2.47 Normal [facility] Comment on above: Performed By: #### L 500.4100, L501.9520, L100.0100, L502.0250, L3410.9992, L400.0001, L506.1001, L500.4050 #### [facility] [address] [place], [address] Cholesterol [Mass/Vol] 174 mg/dL Normal <=200 [facility] Comment on above: Result Comment: Chol esterol level, Desirable <200 mg/dL Borderline high cholesterol 200-239 mg/dL High cholesterol >=240 mg/dL Recommendations of the NCEP Adult Treatment Panel for the following risk-cutoff thresholds for the [place] population. Performed By: #### L 500.4100, L501.9520, L100.0100, L502.0250, L3410.9992, L400.0001, L506.1001, L500.4050 #### [facility] [address] [place], [address] Cholesterol in HDL [Mass/Vol] 70 mg/dL Normal [facility] Comment on above: Result Comment: Jennifer onal Cholesterol Education Program (NCEP) guidelines: <40 mg/dL: Low HDL-cholesterol (major risk factor for CHD) >= 60 mg/dL: High HDL-cholesterol (negative risk factor for CHD) HDL-cholesterol is affected by a number of factors, e.g. smoking, exercise, hormones, sex and age. Performed By: #### L 500.4100, L501.9520, L100.0100, L502.0250, L3410.9992, L400.0001, L506.1001, L500.4050 #### [facility] [address] [place], [address] Cholesterol in LDL [Mass/Vol] 91 mg/dL Normal [facility] Comment on above: Result Comment: Bord ntuymy=162-130 mg/dL Higher Pain=015 mg/dL or greater Performed By: #### L 500.4100, L501.9520, L100.0100, L502.0250, L3410.9992, L400.0001, L506.1001, L500.4050 #### [facility] [address] [place], [address] Cholesterol in VLDL [Mass/Vol] 13 mg/dL Normal 5-40 [facility] Comment on above: Performed By: #### L 500.4100, L501.9520, L100.0100, L502.0250, L3410.9992, L400.0001, L506.1001, L500.4050 #### [facility] [address] [place], [address] Triglyceride [Mass/Vol] 63 mg/dL Normal [facility] Comment on above: Result Comment: The drugs N-Acetylcysteine and Metamizole may falsely depress this assay. Normal range: <150 mg/dL Borderline High: 150-199 mg/dL High: 200-499 mg/dL Very High: >500 mg/dL Performed By: #### L 500.4100, L501.9520, L100.0100, L502.0250, L3410.9992, L400.0001, L506.1001, L500.4050 #### [facility] [address] [place], [address] Lymphocytes Auto (Unsp spec) [#/Vol]Ordered By: Shima Allen on 02-06-2025 Lymphocytes (Bld) [#/Vol] 2.21 10*3/uL 0.83-4.51 [facility] Lymphocytes/100 WBC Auto (Un sp spec)Ordered By: Shima Allen on 02-06-2025 Lymphocytes/100 WBC (Bld) 26.2 % 19-41 [facility] MCV (mean corpuscular volume ) determinationOrdered By: Shima Allen on 02-06-2025 MCV (RBC) [Entitic vol] 90.3 fL 80-94 [facility] Mean corpuscular hemoglobin (MCH) determinationOrdered By: Shima Allen on 02-06-2025 MCH (RBC) [Entitic mass] 30.5 pg 27.0-32.0 [facility] Mean corpuscular hemoglobin concentration (MCHC) determinationOrdered By: Shima Allen on 02-06-2025 MCHC (RBC) [Mass/Vol] 33.8 g/dL 32-36 [facility] Mean platelet volume determi nationOrdered By: Shima Allen on 02-06-2025 Platelet mean volume (Bld) [Entitic vol] 10.8 fL 6.2-12.0 [facility] Microalb:Creat Ratio,Random URon 02-06-2025 Creatinine [Mass/Vol] 133.00 mg/dL Normal 39.00-259.00 [facility] Comment on above: Performed By: #### L 500.4100, L501.9520, L100.0100, L502.0250, L3410.9992, L400.0001, L506.1001, L500.4050 #### [facility] [address] [place], [address] MALB:CREAT UNABLE TO CALCULATE Normal [facility] Comment on above: Performed By: #### L 500.4100, L501.9520, L100.0100, L502.0250, L3410.9992, L400.0001, L506.1001, L500.4050 #### [facility] [address] [place], [address] MICROALBUMIN,UR < 12.0 Normal NO RANGE EST. [facility] Comment on above: Performed By: #### L 500.4100, L501.9520, L100.0100, L502.0250, L3410.9992, L400.0001, L506.1001, L500.4050 #### [facility] [address] [place], [address] Microalbumin/creat ratio urO rdered By: Shima Allen on 02-06-2025 Urine Microalbumin/Creatinine Ratio UNABLE TO CALCULATE mg/g CRE [facility] Urine microalbumin/creatinine ratio measurement UNABLE TO CALCULATE mg/g CRE [facility] Microscopic analysis of urin e for red blood cells (RBC)Ordered By: Shima Allen on 02-06-2025 Microscopic analysis of urine for red blood cells (RBC) 0 SEEN /hpf 0-5 [facility] Urine RBC 0 SEEN /hpf 0-5 [facility] Miscellaneous procedureOrder ed By: Shima Allen on 02-06-2025 Miscellaneous Test COMMENT . [facility] Comment on above: Test Ordered: [id number] Apolipoprotein BApolipoprotein B 74 mg/dL Reference Range: <90 Desirable < 90 Borderline High 90 - 99 High 100 - 130 Very High >130 ASCVD RISK THERAPEUTIC TARGET CATEGORY APO B (mg/dL) Very High Risk <80 (if extreme risk <70) High Risk <90 Moderate Risk <90Performed at: [facility] [place] [employer] [id number] Director: Juancarlos Galicia MD, Phone: [phone] at: [facility] [id number] Director: Jerzy Chin PhD, Phone: [phone] Monocyte percentageOrdered B y: Shima Allen on 02-06-2025 Monocytes/100 WBC (Bld) 8.5 % 0-10 [facility] Mucus LM Ql (Urine sed)Order ed By: Shima Allen on 02-06-2025 Mucus Ql (Urine sed) 0 SEEN /hpf [facility] Neutrophil percentageOrdered By: Shima Allen on 02-06-2025 Neutrophils/100 WBC (Bld) 60.8 % 47-70 [facility] Nitrite Test strip Ql (U)Ord ered By: Shima Allen on 02-06-2025 Nitrite Ql (U) Negative Negative [facility] Nucleated red blood cell per centageOrdered By: Shima Allen on 02-06-2025 Nucleated RBC/100 WBC (Bld) [Ratio] 0 % 0-5 [facility] Platelet countOrdered By: Zachary Allen on 02-06-2025 Platelets (Bld) [#/Vol] 222 10*3/uL 150-450 [facility] Potassium (Unsp spec) [Mass/ Vol]Ordered By: Shima Allen on 02-06-2025 Potassium [Moles/Vol] 4.2 mmol/L 3.3-5.1 [facility] Potassium measurement (mass/ volume)Ordered By: Shima Allen on 02-06-2025 Potassium (Unsp spec) [Mass/Vol] 4.2 mmol/L 3.3-5.1 [facility] Protein Test strip Ql (U)Ord ered By: Shima Allen on 02-06-2025 Protein Ql (U) 15 mg/dl High Negative [facility] RBC Auto (Bld) [#/Vol]Ordere d By: Shima Allen on 02-06-2025 RBC (Bld) [#/Vol] 4.43 10*6/uL Low 4.6-6.2 [facility] Random urine creatinine alvarado urement (mass/volume)Ordered By: Shima Allen on 02-06-2025 Creatinine Unsp time (U) [Mass/Vol] 133.00 mg/dL 39.00-259.00 [facility] Screening total cholesterol/ high density lipoprotein (HDL) cholesterol ratioOrdered By: Shima Allen on 02-06-2025 Cholesterol.total/Yaritza sterol in HDL [Mass ratio] 2.47 {ratio} [facility] Serum creatinine measurement (mass/volume)Ordered By: Shima Allen on 02-06-2025 Creatinine [Mass/Vol] 0.99 mg/dL 0.70-1.20 [facility] Serum globulin measurementOr dered By: Shima Allen on 02-06-2025 Globulin (S) [Mass/Vol] 2.9 g/dL 2.2-4.2 [facility] Serum glucose measurement (m ass/volume)Ordered By: Shima Allen on 02-06-2025 Glucose [Mass/Vol] 99 mg/dL 70-99 [facility] Serum or plasma alanine pompa otransferase (ALT) measurementOrdered By: Shima Allen on 02-06-2025 ALT [Catalytic activity/Vol] 16 U/L <47 [facility] Serum or plasma albumin alvarado urement (mass/volume)Ordered By: Shima Allen on 02-06-2025 Albumin [Mass/Vol] 4.4 g/dL 3.4-4.8 [facility] Serum or plasma albumin/glob ulin mass ratioOrdered By: Shima Allen on 02-06-2025 Albumin/Globulin [Mass ratio] 1.5 {ratio} 0.9-2.4 [facility] Serum or plasma alkaline bernadette sphatase measurementOrdered By: Shima Allen on 02-06-2025 ALP [Catalytic activity/Vol] 42 U/L 40-129 [facility] Serum or plasma calcium alvarado urement (mass/volume)Ordered By: Shima Allen on 02-06-2025 Calcium [Mass/Vol] 9.8 mg/dL 7.6-11.0 [facility] Serum or plasma cholesterol in HDL measurement (mass/volume)Ordered By: Shima Allen on 02-06-2025 Cholesterol in HDL [Mass/Vol] 70 mg/dL >40 [facility] Comment on above: National Cholesterol Education Program (NCEP) guidelines:<40 mg/dL: Low HDL-cholesterol (major risk factor for CHD)>= 60 mg/dL: High HDL-cholesterol (negative risk factor for CHD)HDL-cholesterol is affected by a number of factors, e.g. smoking, exercise, hormones, sex and age. Serum or plasma cholesterol measurement (mass/volume)Ordered By: Shima Allen on 02-06-2025 Cholesterol [Mass/Vol] 174 mg/dL <201 [facility] Comment on above: Cholesterol level, D esirable <200 mg/dLBorderline high cholesterol 200-239 mg/dLHigh cholesterol >=240 mg/dLRecommendations of the NCEP Adult Treatment Panel for the following risk-cutoff thresholds for the [place] population. Serum or plasma urea nitroge n measurement (mass/volume)Ordered By: Shima Allen on 02-06-2025 Urea nitrogen [Mass/Vol] 16 mg/dL 4-19 [facility] Sodium levelOrdered By: Gabriela Allen on 02-06-2025 Sodium [Moles/Vol] 139 mmol/L 133-145 [facility] Squamous epithelial cells de tection in urine sediment by light microscopyOrdered By: Shima Allen on 02-06-2025 Epithelial cells.squamous LM Ql (Urine sed) 0 SEEN /hpf 0-5 [facility] TSH DL <= 0.005 mIU/L QnOrde red By: Shima Allen on 02-06-2025 Thyroid Stimulating Hormone (TSH) 3.470 uIU/mL 0.300-4.200 [facility] TSH Qn 3.470 uIU/mL 0.300-4.200 [facility] Thyroid Stim Hormone (TSH)on 02-06-2025 TSH 3.470 uIU/mL Normal 0.300-4.200 [facility] Comment on above: Performed By: #### L 500.4100, L501.9520, L100.0100, L502.0250, L3410.9992, L400.0001, L506.1001, L500.4050 #### [facility] [address] [place], [address] Total proteinOrdered By: Anca Allen on 02-06-2025 Protein [Mass/Vol] 7.3 g/dL 5.9-8.4 [facility] Triglycerides measurementOrd ered By: Shima Alejandro on 02-06-2025 Triglyceride [Mass/Vol] 63 mg/dL <199 [facility] Comment on above: The drugs N-Acetylcy steine and Metamizole may falsely depress this assay. Normal range: <150 mg/dLBorderline High: 150-199 mg/dLHigh: 200-499 mg/dLVery High: >500 mg/dL Urinalysis, Completeon 02-06 BILIRUBIN URINE Negative Normal Negative [facility] Comment on above: Order Comment: Urine , Random Performed By: #### L 500.4100, L501.9520, L100.0100, L502.0250, L3410.9992, L400.0001, L506.1001, L500.4050 #### [facility] [address] [place], [address] Clarity (U) Clear Normal Clear [facility] Comment on above: Order Comment: Urine , Random Performed By: #### L 500.4100, L501.9520, L100.0100, L502.0250, L3410.9992, L400.0001, L506.1001, L500.4050 #### [facility] [address] [place], [address] Color (U) Yellow Normal Yellow [facility] Comment on above: Order Comment: Urine , Random Performed By: #### L 500.4100, L501.9520, L100.0100, L502.0250, L3410.9992, L400.0001, L506.1001, L500.4050 #### [facility] [address] [place], [address] GLUCOSE, UR Normal Normal Normal [facility] Comment on above: Order Comment: Urine , Random Performed By: #### L 500.4100, L501.9520, L100.0100, L502.0250, L3410.9992, L400.0001, L506.1001, L500.4050 #### [facility] [address] [place], [address] KETONE UR Negative Normal Negative [facility] Comment on above: Order Comment: Urine , Random Performed By: #### L 500.4100, L501.9520, L100.0100, L502.0250, L3410.9992, L400.0001, L506.1001, L500.4050 #### [facility] [address] [place], [address] LEUK ESTERASE Negative Normal Negative [facility] Comment on above: Order Comment: Urine , Random Performed By: #### L 500.4100, L501.9520, L100.0100, L502.0250, L3410.9992, L400.0001, L506.1001, L500.4050 #### [facility] [address] [place], [address] Nitrite Ql (U) Negative Normal Negative [facility] Comment on above: Order Comment: Urine , Random Performed By: #### L 500.4100, L501.9520, L100.0100, L502.0250, L3410.9992, L400.0001, L506.1001, L500.4050 #### [facility] [address] [place], [address] OCCULT BLOOD-UR Negative Normal Negative [facility] Comment on above: Order Comment: Urine , Random Performed By: #### L 500.4100, L501.9520, L100.0100, L502.0250, L3410.9992, L400.0001, L506.1001, L500.4050 #### [facility] [address] [place], [address] pH UR 6.5 Normal 5.0 - 8.0 [facility] Comment on above: Order Comment: Urine , Random Performed By: #### L 500.4100, L501.9520, L100.0100, L502.0250, L3410.9992, L400.0001, L506.1001, L500.4050 #### [facility] [address] [place], [address] PROT DIPSTX 15 mg/dl Abnormal Negative [facility] Comment on above: Order Comment: Urine , Random Performed By: #### L 500.4100, L501.9520, L100.0100, L502.0250, L3410.9992, L400.0001, L506.1001, L500.4050 #### [facility] [address] [place], [place], [id number] SP.GR. DIPSTX 1.010 Normal 1.002-1.030 [facility] Comment on above: Order Comment: Urine , Random Performed By: #### L 500.4100, L501.9520, L100.0100, L502.0250, L3410.9992, L400.0001, L506.1001, L500.4050 #### [facility] [address] [place], [place], [id number] UROBILI Normal Normal Normal [facility] Comment on above: Order Comment: Urine , Random Performed By: #### L 500.4100, L501.9520, L100.0100, L502.0250, L3410.9992, L400.0001, L506.1001, L500.4050 #### [facility] [address] [place], [place], [id number] Urine albumin measurement [facility] detection limit of 20 mg/L or less (mass/volume)Ordered By: Shima Allen on 02-06-2025 Albumin DL <= 20 mg/L (U) [Mass/Vol] < 12.0 mg/L NO RANGE EST. [facility] Urine blood detectionOrdered By: Shima Allen on 02-06-2025 Urine Occult Blood Negative Negative [facility] Urine clarityOrdered By: Anca Allen on 02-06-2025 Clarity (U) Clear Clear [facility] Urine color determinationOrd ered By: Shima Allen on 02-06-2025 Color (U) Yellow Yellow [facility] Urine glucose detectionOrder ed By: Shima Allen on 02-06-2025 Glucose Ql (U) Normal mg/dl Normal [facility] Urine leukocyte esterase det ection by dipstickOrdered By: Shima Allen on 02-06-2025 Leukocyte esterase Test strip Ql (U) Negative Negative [facility] Urine pHOrdered By: Shima Allen on 02-06-2025 pH (U) 6.5 [pH] 5.0 - 8.0 [facility] Urine sediment bacteria coun t by microscopy (number/high power field)Ordered By: Shima Allen on 02-06-2025 Bacteria LM.HPF (Urine sed) [#/Area] 0 /[HPF] None Seen [facility] Urine specific gravity measu rementOrdered By: Shima Allen on 02-06-2025 Specific gravity (U) [Rel density] 1.010 1.002-1.030 [facility] Urine urobilinogen measureme ntOrdered By: Shima Allen on 02-06-2025 Urobilinogen Ql (U) Normal mg/dl Normal [facility] Urobilinogen Ql (U)Ordered B y: Shima Allen on 02-06-2025 Urine Urobilinogen Normal mg/dl Normal [facility] Vitamin D, 25-hydroxyOrdered By: Shima Allen on 02-06-2025 Vitamin D 25-Hydroxy 138.0 ng/mL High 30-100 [facility] Comment on above: Vitamin D StatusDefi ciency: <20 ng/mL (50nmol/L)Insufficiency: 20-30 ng/mL (50-75 nmol/L)Sufficiency: 30-100 ng/mL (75-250 nmol/L)Toxicity: >100 ng/mL (>250 nmol/L) Vitamin D,25 Hydroxyon 02-06 Vitamin D 25-OH 138.0 ng/mL High 30-100 [facility] Comment on above: Result Comment: Samara min D Status Deficiency: <20 ng/mL (50nmol/L) Insufficiency: 20-30 ng/mL (50-75 nmol/L) Sufficiency: 30-100 ng/mL (75-250 nmol/L) Toxicity: >100 ng/mL (>250 nmol/L) Performed By: #### L 500.4100, L501.9520, L100.0100, L502.0250, L3410.9992, L400.0001, L506.1001, L500.4050 #### [facility] [address] [place], [address] White blood cell (WBC) count Ordered By: Shima Allen on 02-06-2025 WBC (Bld) [#/Vol] 8.4 10*3/uL 4.4-11.0 [facility] White blood cell countOrdere d By: Shima Allen on 02-06-2025 Urine WBC 0 SEEN /hpf 0-5 [facility] White blood cell count 0 SEEN /hpf 0-5 [facility] CBC W/Diff, Automatedon 06-19 Absolute Lymph 2.28 X10 3/uL Normal 0.83-4.51 [facility] Comment on above: Performed By: #### L 506.1000, L100.0100, L500.4100, L500.4050, L502.0250 #### [facility] [address] [place], [address] Absolute Neut 3.9 X10 3/uL Normal 2.0-7.7 [facility] Comment on above: Performed By: #### L 506.1000, L100.0100, L500.4100, L500.4050, L502.0250 #### [facility] [address] [place], [address] Basophils/100 WBC (Bld) 0.8 % Normal 0-1 [facility] Comment on above: Performed By: #### L 506.1000, L100.0100, L500.4100, L500.4050, L502.0250 #### [facility] [address] [place], [address] Eosinophils/100 WBC (Bld) 3.9 % Normal 0-5 [facility] Comment on above: Performed By: #### L 506.1000, L100.0100, L500.4100, L500.4050, L502.0250 #### [facility] [address] [place], [address] Erythrocyte distribution width (RBC) [Ratio] 13.1 % Normal 11.6-14.6 [facility] Comment on above: Performed By: #### L 506.1000, L100.0100, L500.4100, L500.4050, L502.0250 #### [facility] [address] [place], [address] Hematocrit (Bld) [Volume fraction] 41.7 % Normal 40-54 [facility] Comment on above: Performed By: #### L 506.1000, L100.0100, L500.4100, L500.4050, L502.0250 #### [facility] [address] [place], [address] Hemoglobin (Bld) [Mass/Vol] 13.7 g/dL Normal 13.0-16.5 [facility] Comment on above: Performed By: #### L 506.1000, L100.0100, L500.4100, L500.4050, L502.0250 #### [facility] [address] [place], [address] IG% 0.400 Normal 0.0-0.9 [facility] Comment on above: Result Comment: IG% - Immature Granulocytes (promyelocytes, myelocytes and metamyelocytes) > 1% indicates that a LEFT SHIFT is Present. Performed By: #### L 506.1000, L100.0100, L500.4100, L500.4050, L502.0250 #### [facility] [address] [place], [address] Lymphocytes/100 WBC (Bld) 31.9 % Normal 19-41 [facility] Comment on above: Performed By: #### L 506.1000, L100.0100, L500.4100, L500.4050, L502.0250 #### [facility] [address] [place], [address] MCH (RBC) [Entitic mass] 29.9 pg Normal 27.0-32.0 [facility] Comment on above: Performed By: #### L 506.1000, L100.0100, L500.4100, L500.4050, L502.0250 #### [facility] [address] [place], [address] MCHC (RBC) [Mass/Vol] 32.9 g/dL Normal 32-36 [facility] Comment on above: Performed By: #### L 506.1000, L100.0100, L500.4100, L500.4050, L502.0250 #### [facility] [address] [place], [address] MCV (RBC) [Entitic vol] 91.0 fL Normal 80-94 [facility] Comment on above: Performed By: #### L 506.1000, L100.0100, L500.4100, L500.4050, L502.0250 #### [facility] [address] [place], [address] Monocytes/100 WBC (Bld) 8.4 % Normal 0-10 [facility] Comment on above: Performed By: #### L 506.1000, L100.0100, L500.4100, L500.4050, L502.0250 #### [facility] [address] [place], [address] Neutrophils/100 WBC (Bld) 54.6 % Normal 47-70 [facility] Comment on above: Performed By: #### L 506.1000, L100.0100, L500.4100, L500.4050, L502.0250 #### [facility] [address] [place], [address] Nucleated RBC (Bld) [#/Vol] 0 10*3/uL Normal 0-5 [facility] Comment on above: Performed By: #### L 506.1000, L100.0100, L500.4100, L500.4050, L502.0250 #### [facility] [address] [place], [address] Platelet mean volume (Bld) [Entitic vol] 11.2 fL Normal 6.2-12.0 [facility] Comment on above: Performed By: #### L 506.1000, L100.0100, L500.4100, L500.4050, L502.0250 #### [facility] [address] [place], [address] Platelets (Bld) [#/Vol] 227 10*3/uL Normal 150-450 [facility] Comment on above: Performed By: #### L 506.1000, L100.0100, L500.4100, L500.4050, L502.0250 #### [facility] [address] [place], [address] RBC (Bld) [#/Vol] 4.58 10*6/uL Low 4.6-6.2 [facility] Comment on above: Performed By: #### L 506.1000, L100.0100, L500.4100, L500.4050, L502.0250 #### [facility] [address] [place], [address] RDW SD 43.8 fl Normal 35.1-43.9 [facility] Comment on above: Performed By: #### L 506.1000, L100.0100, L500.4100, L500.4050, L502.0250 #### [facility] [address] [place], [address] WBC (Bld) [#/Vol] 7.1 10*3/uL Normal 4.4-11.0 [facility] Comment on above: Performed By: #### L 506.1000, L100.0100, L500.4100, L500.4050, L502.0250 #### [facility] [address] [place], [address] Comprehensive Metabolic Prof [facility] 07-12-2024 Albumin [Mass/Vol] 3.8 g/dL Normal 3.2-5.0 [facility] Comment on above: Performed By: #### L 500.4100, L501.9520, L100.0100, L502.0250, L3410.9992, L400.0001, L506.1001, L500.4050 #### [facility] [address] [place], [address] Albumin/Globulin [Mass ratio] 1.0 {ratio} Normal 0.9-2.4 [facility] Comment on above: Performed By: #### L 500.4100, L501.9520, L100.0100, L502.0250, L3410.9992, L400.0001, L506.1001, L500.4050 #### [facility] [address] [place], [address] ALK P 51 U/L Normal 45-117 [facility] Comment on above: Performed By: #### L 500.4100, L501.9520, L100.0100, L502.0250, L3410.9992, L400.0001, L506.1001, L500.4050 #### [facility] [address] [place], [address] ALT [Catalytic activity/Vol] 22 U/L Normal 16-61 [facility] Comment on above: Performed By: #### L 500.4100, L501.9520, L100.0100, L502.0250, L3410.9992, L400.0001, L506.1001, L500.4050 #### [facility] [address] [place], [address] AST [Catalytic activity/Vol] 22 U/L Normal 15-37 [facility] Comment on above: Performed By: #### L 500.4100, L501.9520, L100.0100, L502.0250, L3410.9992, L400.0001, L506.1001, L500.4050 #### [facility] [address] [place], [address] Bilirubin [Mass/Vol] 0.60 mg/dL Normal 0.20-1.00 [facility] Comment on above: Result Comment: For patients on eltrombopag therapy, use of Dimension [place] TBIL is not recommended. Performed By: #### L 500.4100, L501.9520, L100.0100, L502.0250, L3410.9992, L400.0001, L506.1001, L500.4050 #### [facility] [address] [place], [address] BUN/CRE 17.2 RATIO Normal 10-20 [facility] Comment on above: Performed By: #### L 500.4100, L501.9520, L100.0100, L502.0250, L3410.9992, L400.0001, L506.1001, L500.4050 #### [facility] [address] [place], [address] CA,Total 9.9 mg/dL Normal 8.5-10.1 [facility] Comment on above: Performed By: #### L 500.4100, L501.9520, L100.0100, L502.0250, L3410.9992, L400.0001, L506.1001, L500.4050 #### [facility] [address] [place], [address] Chloride [Moles/Vol] 103 mmol/L Normal 98-107 [facility] Comment on above: Performed By: #### L 500.4100, L501.9520, L100.0100, L502.0250, L3410.9992, L400.0001, L506.1001, L500.4050 #### [facility] [address] [place], [address] CO2 [Moles/Vol] 28.0 mmol/L Normal 21.0-32.0 [facility] Comment on above: Performed By: #### L 500.4100, L501.9520, L100.0100, L502.0250, L3410.9992, L400.0001, L506.1001, L500.4050 #### [facility] [address] [place], [address] Creatinine [Mass/Vol] 0.93 mg/dL Normal 0.70-1.30 [facility] Comment on above: Result Comment: The validity of the calculated GFR GFRAA in patients over 70 years has not been determined. Clinical correlation is essential. Performed By: #### L 500.4100, L501.9520, L100.0100, L502.0250, L3410.9992, L400.0001, L506.1001, L500.4050 #### [facility] [address] [place], [address] EST GFR - AA 100 mL/min Normal >60 [facility] Comment on above: Result Comment: Afri can [place] GFR Calc Performed By: #### L 500.4100, L501.9520, L100.0100, L502.0250, L3410.9992, L400.0001, L506.1001, L500.4050 #### [facility] [address] [place], [address] GAP 6 Normal 5-15 [facility] Comment on above: Performed By: #### L 500.4100, L501.9520, L100.0100, L502.0250, L3410.9992, L400.0001, L506.1001, L500.4050 #### [facility] [address] [place], [address] GFR/1.73 sq M.predicted among non-blacks MDRD (S/P/Bld) [Vol rate/Area] 83 mL/min/{1.73_m2} Normal >60 [facility] Comment on above: Result Comment: Non- GFR Calc Performed By: #### L 500.4100, L501.9520, L100.0100, L502.0250, L3410.9992, L400.0001, L506.1001, L500.4050 #### [facility] [address] [place], [address] Globulin (S) [Mass/Vol] 3.7 g/dL Normal 2.2-4.2 [facility] Comment on above: Performed By: #### L 500.4100, L501.9520, L100.0100, L502.0250, L3410.9992, L400.0001, L506.1001, L500.4050 #### [facility] [address] [place], [address] Glucose [Mass/Vol] 121 mg/dL High 74-106 [facility] Comment on above: Result Comment: Fast ing Glucose result from 100 to 125 mg/dL suggests IMPAIRED HOMEOSTASIS per A.D.A. criteria. Performed By: #### L 500.4100, L501.9520, L100.0100, L502.0250, L3410.9992, L400.0001, L506.1001, L500.4050 #### [facility] [address] [place], [address] Potassium [Moles/Vol] 3.6 mmol/L Normal 3.5-5.1 [facility] Comment on above: Performed By: #### L 500.4100, L501.9520, L100.0100, L502.0250, L3410.9992, L400.0001, L506.1001, L500.4050 #### [facility] [address] [place], [address] Sodium [Moles/Vol] 137 mmol/L Normal 136-145 [facility] Comment on above: Performed By: #### L 500.4100, L501.9520, L100.0100, L502.0250, L3410.9992, L400.0001, L506.1001, L500.4050 #### [facility] [address] [place], [address] T PROT 7.5 g/dL Normal 6.4-8.2 [facility] Comment on above: Performed By: #### L 500.4100, L501.9520, L100.0100, L502.0250, L3410.9992, L400.0001, L506.1001, L500.4050 #### [facility] [address] [place], [address] Urea nitrogen [Mass/Vol] 16 mg/dL Normal 7-18 [facility] Comment on above: Performed By: #### L 500.4100, L501.9520, L100.0100, L502.0250, L3410.9992, L400.0001, L506.1001, L500.4050 #### [facility] [address] [place], [address] Lipid Profileon 07-12-2024 Cholesterol [Mass/Vol] 171 mg/dL Normal [address] [facility] Comment on above: Result Comment: <200 mg/dL Desirable 200-240 mg/dL Borderline >240 mg/dL High Risk Performed By: #### L 500.4100, L501.9520, L100.0100, L502.0250, L3410.9992, L400.0001, L506.1001, L500.4050 #### [facility] [address] [place], [address] Cholesterol in HDL [Mass/Vol] 83 mg/dL Normal [facility] Comment on above: Result Comment: The drugs N-Acetylcysteine and Metamizole may falsely depress this assay. Reference Range HDL <40 mg/dL Low HDL Cholesterol HDL >or= 60 mg/dL High HDL Cholesterol Performed By: #### L 500.4100, L501.9520, L100.0100, L502.0250, L3410.9992, L400.0001, L506.1001, L500.4050 #### [facility] [address] [place], [address] Cholesterol in LDL [Mass/Vol] 75 mg/dL Normal 0-130 [facility] Comment on above: Performed By: #### L 500.4100, L501.9520, L100.0100, L502.0250, L3410.9992, L400.0001, L506.1001, L500.4050 #### [facility] [address] [place], [address] Cholesterol in VLDL [Mass/Vol] 13 mg/dL Normal 5-40 [facility] Comment on above: Performed By: #### L 500.4100, L501.9520, L100.0100, L502.0250, L3410.9992, L400.0001, L506.1001, L500.4050 #### [facility] [address] [place], [address] Triglyceride [Mass/Vol] 65 mg/dL Normal [facility] Comment on above: Result Comment: The drugs N-Acetylcysteine and Metamizole may falsely depress this assay. Serum Triglycerides Reference Interval Normal <150 mg/dL Borderline high 150 - 199 mg/dL High 200 - 499 mg/dL Very High > or = 500 mg/dL Performed By: #### L 500.4100, L501.9520, L100.0100, L502.0250, L3410.9992, L400.0001, L506.1001, L500.4050 #### [facility] [address] [place], [address] Microalb:Creat Ratio,Random URon 07-12-2024 Creatinine [Mass/Vol] 54.20 mg/dL Normal NO RAN GE EST. [facility] Comment on above: Performed By: #### L 500.4100, L501.9520, L100.0100, L502.0250, L3410.9992, L400.0001, L506.1001, L500.4050 #### [facility] [address] [place], [address] MALB:CRE TNP Normal <30 mg/g CRE [facility] Comment on above: Performed By: #### L 500.4100, L501.9520, L100.0100, L502.0250, L3410.9992, L400.0001, L506.1001, L500.4050 #### [facility] [address] [place], [address] MICROALBUMIN,UR < 5.0 Normal NO RANGE EST. [facility] Comment on above: Performed By: #### L 500.4100, L501.9520, L100.0100, L502.0250, L3410.9992, L400.0001, L506.1001, L500.4050 #### [facility] [address] [place], [address] Vitamin D,25 Hydroxyon 07-12 Vitamin D 25-OH 91.4 ng/mL Normal [facility] Comment on above: Result Comment: Samara min D 25(OH) Status Range Deficiency <20 ng/mL (50nmol/L) Insufficiency 20 - 30 ng/mL (50 - 75 nmol/L) Sufficiency 30 - 100 ng/mL (75 - 250 nmol/L) Toxicity >100 ng/mL (>250 nmol/L) Performed By: #### L 506.1000, L100.0100, L500.4100, L500.4050, L502.0250 #### [facility] [address] [place], [address] Absolute lymphocyte countOrd ered By: Shima Allen on 12-30-2023 Lymphocytes Auto (Unsp spec) [#/Vol] 2.14 10*3/uL 0.83-4.51 [facility] Automated lymphocyte count a s percentage of total leukocytesOrdered By: Shima Allen on 12-30-2023 Lymphocytes/100 WBC Auto (Unsp spec) 34.6 % 19-41 [facility] Basophil percentageOrdered B y: Shima Allen on 12-30-2023 Basophil percentage 0 SEEN /hpf 0-5 [facility] Basophils/100 WBC (Bld) 0.8 % 0-1 [facility] Bilirubin [Mass/Vol] 0.70 mg/dL 0.20-1.00 [facility] Comment on above: For patients on eltr ombopag therapy, use of Dimension [place] TBIL is not recommended. Chloride [Moles/Vol] 101 mmol/L 98-107 [facility] Cholesterol [Mass/Vol] 165 mg/dL <200 [facility] Comment on above: <200 mg/dL Desirable 200-240 mg/dL Borderline >240 mg/dL High Risk Eosinophils/100 WBC (Bld) 3.6 % 0-5 [facility] Glucose [Mass/Vol] 130 mg/dL 74-106 [facility] Comment on above: Fasting Glucose resu lt greater than or equal to 126 mg/dL suggests DIABETES MELLITUS per A.D.A. criteria. Hemoglobin (Bld) [Mass/Vol] 14.0 g/dL 13.0-16.5 [facility] Monocytes/100 WBC (Bld) 8.2 % 0-10 [facility] Neutrophils (Bld) [#/Vol] 3.3 10*3/uL 2.0-7.7 [facility] Neutrophils/100 WBC (Bld) 52.6 % 47-70 [facility] Potassium [Moles/Vol] 3.7 mmol/L 3.5-5.1 [facility] Protein [Mass/Vol] 7.5 g/dL 6.4-8.2 [facility] Sodium [Moles/Vol] 138 mmol/L 136-145 [facility] Triglyceride [Mass/Vol] 46 mg/dL <199 [facility] Comment on above: The drugs N-Acetylcy steine and Metamizole may falsely depress this assay.Serum Triglycerides Reference Interval Normal <150 mg/dL Borderline high 150 - 199 mg/dL High 200 - 499 mg/dL Very High > or = 500 mg/dL WBC (Bld) [#/Vol] 6.2 10*3/uL 4.4-11.0 [facility] Bilirubin Test strip Ql (U)O rdered By: Shima Allen on 12-30-2023 Bilirubin Ql (U) Negative Negative [facility] Determination of erythrocyte mean corpuscular volume (MCV)Ordered By: Shima Allen on 12-30-2023 MCV (RBC) [Entitic vol] 91.8 fL 80-94 [facility] Erythrocyte distribution wid th ratioOrdered By: Shima Allen on 12-30-2023 Erythrocyte distribution width (RBC) [Ratio] 12.8 % 11.6-14.6 [facility] Erythrocyte distribution wid th standard deviationOrdered By: Shima Allen on 12-30-2023 Erythrocyte distribution width (RBC) [Entitic vol] 43.5 fL 35.1-43.9 [facility] Hematocrit Auto (Bld) [Volum e fraction]Ordered By: Shima Allen on 12-30-2023 Hematocrit (Bld) [Volume fraction] 41.5 % 40-54 [facility] Immature granulocytes/100 WB C Auto (Bld)Ordered By: Shima Allen on 12-30-2023 Immature granulocytes/100 WBC (Bld) 0.200 % 0.0-0.9 [facility] Comment on above: IG% - Immature Granu locytes (promyelocytes, myelocytes and metamyelocytes) > 1% indicates that a LEFT SHIFT is Present. Ketones Test strip Ql (U)Ord ered By: Shima Allen on 12-30-2023 Ketones Ql (U) Negative Negative [facility] Laboratory - Chemistry and C hemistry - challengeOrdered By: Shima Allen on 12-30-2023 Albumin/Globulin [Mass ratio] 1.0 {ratio} 0.9-2.4 [facility] ALP [Catalytic activity/Vol] 47 U/L 45-117 [facility] ALT [Catalytic activity/Vol] 27 U/L 16-61 [facility] Cholesterol in HDL [Mass/Vol] 73 mg/dL >40 [facility] Comment on above: The drugs N-Acetylcy steine and Metamizole may falsely depress this assay. Reference Range HDL <40 mg/dL Low HDL Cholesterol HDL >or= 60 mg/dL High HDL Cholesterol Cholesterol in LDL [Mass/Vol] 83 mg/dL 0-130 [facility] CO2 [Moles/Vol] 30.0 mmol/L 21.0-32.0 [facility] Globulin (S) [Mass/Vol] 3.7 g/dL 2.2-4.2 [facility] Urea nitrogen/Creatinine [Mass ratio] 17.8 mg/mg 10-20 [facility] Laboratory - Hematology and Cell countsOrdered By: Shima Allen on 12-30-2023 MCH (RBC) [Entitic mass] 31.0 pg 27.0-32.0 [facility] MCHC (RBC) [Mass/Vol] 33.7 g/dL 32-36 [facility] Nucleated RBC/100 WBC (Bld) [Ratio] 0 % 0-5 [facility] Platelet mean volume (Bld) [Entitic vol] 10.5 fL 6.2-12.0 [facility] Platelets (Bld) [#/Vol] 225 10*3/uL 150-450 [facility] Mucus LM Ql (Urine sed)Order ed By: Shima Allen on 12-30-2023 Mucus Ql (Urine sed) 0 SEEN /hpf [facility] Nitrite Test strip Ql (U)Ord ered By: Shima Allen on 12-30-2023 Nitrite Ql (U) Negative Negative [facility] No Panel InformationOrdered By: Shima Allen on 12-30-2023 Estimated GFR (MDRD) Amer 85 mL/min >60 [facility] Comment on above: GFR Calc Estimated GFR (MDRD) Non-Af Amer 70 mL/min >60 [facility] Comment on above: Non- GFR Calc Urine Microalbumin/Creatinine Ratio TNP [facility] Comment on above: Test not performed Urine RBC 0 SEEN /hpf 0-5 [facility] Vitamin D 25-Hydroxy 114.0 ng/mL [facility] Comment on above: Vitamin D 25(OH) Sta tus Range Deficiency <20 ng/mL (50nmol/L) Insufficiency 20 - 30 ng/mL (50 - 75 nmol/L) Sufficiency 30 - 100 ng/mL (75 - 250 nmol/L) Toxicity >100 ng/mL (>250 nmol/L)Evidence suggests that patients undergoing fluorescein dye angiography can retain small amounts of fluorescein in the body for up to 48 to 72 hours post-treatment. In the cases of patients with renal insufficiency, retention could be much longer. Samples containing fluorescein can produce falsely elevated values when tested with the [employer] Centaur Vitamin D assay. With fluorescein interference, observed Vitamin D values can be as high as >150 ng/mL (>375 nmol/L). Samples should be resubmitted post fluorescein clearance to ensure there is no interference with Vitamin D test results. VLDL Cholesterol 9 mg/dL 5-40 [facility] Protein Test strip Ql (U)Ord ered By: Shima Allen on 12-30-2023 Protein Ql (U) Negative Negative [facility] RBC Auto (Bld) [#/Vol]Ordere d By: Shima Allen on 12-30-2023 RBC (Bld) [#/Vol] 4.52 10*6/uL 4.6-6.2 [facility] Serum or plasma calcium alvarado urement (mass/volume)Ordered By: Shima Allen on 12-30-2023 Calcium [Mass/Vol] 10.0 mg/dL 8.5-10.1 [facility] Serum or plasma creatinine m easurement (mass/volume)Ordered By: Shima Allen on 12-30-2023 Creatinine [Mass/Vol] 1.07 mg/dL 0.70-1.30 [facility] Comment on above: The validity of the calculated GFR & GFRAA in patients over 70 years has not been determined. Clinical correlation is essential. Serum or plasma thyroid stim ulating hormone (TSH) measurement (units/volume)Ordered By: Shima Allen on 12-30-2023 TSH Qn 2.64 uIU/mL 0.358-3.74 [facility] Serum or plasma urea nitroge n measurement (mass/volume)Ordered By: Shima Allen on 12-30-2023 Urea nitrogen [Mass/Vol] 19 mg/dL 7-18 [facility] Squamous epithelial cells de tection in urine sediment by light microscopyOrdered By: Shima Allen on 12-30-2023 Epithelial cells.squamous LM Ql (Urine sed) 0 SEEN /hpf 0-5 [facility] Thin prep Papanicolaou smear with manual screeningOrdered By: Shima Allen on 12-30-2023 Thin prep Papanicolaou smear with manual screening 3.8 g/dL 3.2-5.0 [facility] Thin prep Papanicolaou smear with manual screening 20 U/L 15-37 [facility] Thin prep Papanicolaou smear with manual screening 7 5-15 [facility] Thin prep Papanicolaou smear with manual screening < 5.0 mg/L NO RANGE EST. [facility] Urine blood detectionOrdered By: Shima Allen on 12-30-2023 RBC Ql (U) Negative Negative [facility] Urine clarityOrdered By: Anca Allen on 12-30-2023 Clarity (U) Clear Clear [facility] Urine color determinationOrd ered By: Shima Allen on 12-30-2023 Color (U) Yellow Yellow [facility] Urine creatinine measurement (mass/volume)Ordered By: Shima Allen on 12-30-2023 Creatinine (U) [Mass/Vol] 56.60 mg/dL NO RANGE EST. [facility] Urine glucose detectionOrder ed By: Shima Allen on 12-30-2023 Glucose Ql (U) Normal mg/dl Normal [facility] Urine leukocyte esterase det ection by dipstickOrdered By: Shima Allen on 12-30-2023 Leukocyte esterase Test strip Ql (U) Negative Negative [facility] Urine pHOrdered By: Shima Allen on 12-30-2023 pH (U) 7.0 [pH] 5.0 - 8.0 [facility] Urine sediment bacteria coun t by microscopy (number/high power field)Ordered By: Shima Allen on 12-30-2023 Bacteria LM.HPF (Urine sed) [#/Area] 0 /[HPF] None Seen [facility] Urine specific gravity measu rementOrdered By: Shima Allen on 12-30-2023 Specific gravity (U) [Rel density] 1.010 1.002-1.030 [facility] Urine urobilinogen measureme ntOrdered By: Shima Allen on 12-30-2023 Urobilinogen Ql (U) Normal mg/dl Normal [facility] Lab Report: Lipid Profileon 12-03-2017 Cholesterol 185 mg/dL Invalid Interpretation Code 200 [facility] Work Phone: [phone] HDL Cholesterol 74 mg/dL Invalid Interpretation Code [facility] [employer] Work Phone: [phone] LDL Cholesterol 95 mg/dL Invalid Interpretation Code 0-130 [facility] [employer] Work Phone: [phone] Triglyceride 81 mg/dL Invalid Interpretation Code [facility] [employer] Work Phone: [phone] very low density lipoproteins 16 mg/dL Invalid Interpretation Code 5-40 [facility] [employer] Work Phone: [phone] Lab Report: Liver Profileon 12-03-2017 Alanine aminotransferase (ALT) 29 U/L Invalid Interpretation Code 16-61 [facility] Work Phone: [phone] Albumin 3.9 g/dL Invalid Interpretation Code 3.2-5.0 [facility] Work Phone: [phone] Alkaline phosphatase (ALP) 48 U/L Invalid Interpretation Code 45-117 [facility] Work Phone: [phone] Aspartate aminotransferase (AST) 18 U/L Invalid Interpretation Code 15-37 [facility] Work Phone: [phone] Bilirubin (direct) 0.14 mg/dL Invalid Interpretation Code 0.00-0.30 [facility] Work Phone: [phone] Bilirubin (total) 0.60 mg/dL Invalid Interpretation Code 0.20-1.00 [facility] Work Phone: [phone] Globulin 3.9 g/dL Invalid Interpretation Code 2.2-4.2 [facility] Work Phone: [phone] Protein 7.8 g/dL Invalid Interpretation Code 6.4-8.2 [facility] Work Phone: [phone] EKG Report: [facility] ECG Obse rvationson 06-14-2017 EKG QRS axis -15 deg [facility] Work Phone: [phone] Interpretation Sinus Rhythm -First degree A-V block Jevon = 248-Incomplete left bundle branch block. ABNORMAL [facility] Work Phone: [phone] P [place] 31 deg [facility] Work Phone: [phone] [place] Interval 248 ms [facility] Work Phone: [phone] QRS Duration 96 ms [facility] Work Phone: [phone] QT Interval new path ms [facility] Work Phone: [phone] QTc Zuñiga 406 ms [facility] Work Phone: [phone] T [place] 25 deg [facility] Phone: [phone] Office Visit: [facility] 06-14-20 17 Documentation of current medications (procedure) Done Invalid Interpretation Code [facility] Work Phone: [phone] Protein mass conc Done [facility] Work Phone: [phone] Replaced Document: [facility] E CG Observationson 06-14-2017 BUN (urea nitrogen) Sinus Rhythm -First degree A-V block Jevon = 248-Incomplete left bundle branch block. ABNORMAL Invalid Interpretation Code [facility] Work Phone: [phone] GE use only - for [employer] import when terms are not otherwise specified 406 ms Invalid Interpretation Code [facility] Work Phone: [phone] P wave axis, electrocardiogram 31 deg Invalid Interpretation Code [facility] Work Phone: 1 [place] interval, electrocardiogram 248 ms Invalid Interpretation Code [facility] Work Phone: [phone] Pulse (Heart Rate) 60 /min Invalid Interpretation Code [facility] Work Phone: [phone] QRS axis, electrocardiogram -15 deg Invalid Interpretation Code [facility] Work Phone: [phone] QRS duration, electrocardiogram 96 ms Invalid Interpretation Code [facility] Work Phone: [phone] QT interval, electrocardiogram new path ms Invalid Interpretation Code [facility] Work Phone: [phone] T wave axis, electrocardiogram 25 deg Invalid Interpretation Code [facility] Work Phone: [phone] Lab Report: Lipid Profileon 06-02-2017 Cholesterol in HDL mass conc 72 mg/dL Invalid Interpretation Code [facility] Phone: [phone] Cholesterol in LDL mass conc 89 mg/dL Invalid Interpretation Code 0-130 [facility] Work Phone: [phone] Cholesterol mass conc 171 mg/dL Invalid Interpretation Code 200 [facility] Work Phone: [phone] Lipoprotein.pre-beta mass conc 10 mg/dL Invalid Interpretation Code 5-40 [facility] Work Phone: [phone] Triglyceride mass conc 51 mg/dL Invalid Interpretation Code [facility] Phone: [phone] Lab Report: Liver Profileon 06-02-2017 Albumin mass conc 4.1 g/dL Invalid Interpretation Code 3.4-5.0 [facility] Phone: [phone] Alkaline phosphatase (ALP) 54 U/L Invalid Interpretation Code 45-117 [facility] Work Phone: [phone] ALP enzyme act/vol (Bld) 54 U/L 45-117 [facility] Work Phone: [phone] ALT enzyme act/vol 25 U/L Invalid Interpretation Code 12-78 [facility] Work Phone: [phone] AST enzyme act/vol 16 U/L Invalid Interpretation Code 15-37 [facility] Work Phone: [phone] Bilirubin mass conc 0.70 mg/dL Invalid Interpretation Code 0.20-1.00 [facility] Phone: [phone] Bilirubin.direct mass conc 0.17 mg/dL Invalid Interpretation Code 0.00-0.30 [facility] Work Phone: [phone] Globulin 4.0 g/dL High 2.3-3.5 [facility] Work Phone: [phone] Globulin mass conc (S) 4.0 g/dL High 2.3-3.5 [facility] Work Phone: [phone] Protein mass conc 8.1 g/dL Invalid Interpretation Code 6.4-8.2 [facility] Work Phone: [phone]) Lab Report: Vitamin B12on Cobalamin (Vitamin B12) mass conc 472 pg/mL 211-911 [facility] Work Phone: [phone] vitamin b12, serum 472 pg/mL Invalid Interpretation Code 211-911 [facility] Work Phone: [phone] Lab Report: Vitamin D,25 Hyd roxyon 12-23-2016 vitamin D 25-hydroxy, serum 28.0 ng/mL Invalid Interpretation Code [facility] Work Phone: [phone] Vitamin D 25-OH 28.0 ng/mL [facility] Work Phone: [phone] Lab Report: CBC W/Diff, Auto matedon 12-22-2016 Basophils/100 leukocytes 0.6 % Invalid Interpretation Code 0-1 [facility] Work Phone: [phone] Basophils/100 WBC (Bld) 0.6 % 0-1 [facility] Work Phone: [phone] Eosinophils/100 leukocytes 3.1 % Invalid Interpretation Code 0-5 [facility] Work Phone: [phone] Eosinophils/100 WBC (Bld) 3.1 % 0-5 [facility] Work Phone: [phone] Erythrocyte distribution width Ratio (RBC) 13.3 % 11.6-14.6 [facility] Work Phone: [phone] Erythrocyte distribution width Ratio (RBC) 43.9 fL 35.1-43.9 [facility] Work Phone: Erythrocytes (RBC) 4.98 10*6/uL Invalid Interpretation Code 4.6-6.2 [facility] Work Phone: [phone] Hematocrit (HCT) 45.0 % Invalid Interpretation Code 40-54 [facility] Work Phone: [phone] Hematocrit Volume Fraction (Bld) 45.0 % 40-54 [facility] Work Phone: [phone] Hemoglobin mass conc (Bld) 15.0 g/dL Invalid Interpretation Code 13.0-16.5 [facility] Work Phone: [phone] Immature granulocytes #/vol (Bld) 0.300 % 0.0-0.9 [facility] Work Phone: [phone] immature granulocytes, percentage of total cells, blood 0.300 % Invalid Interpretation Code 0.0-0.9 [facility] Work [phone] Lymphocytes 2.19 X10 3/UL Invalid Interpretation Code 0.83-4.51 [facility] Work Phone: [phone] Lymphocytes #/vol (Bld) 2.19 X10 3/UL 0.83-4.51 [facility] Work Phone: [phone] Lymphocytes/100 leukocytes 32.3 % Invalid Interpretation Code 19-41 [facility] Work Phone: [phone] Lymphocytes/100 WBC (Bld) 32.3 % 19-41 [facility] Work Phone: [phone] MCH 30.1 pg Invalid Interpretation Code 27.0-32.0 [facility] Work Phone: [phone] MCH Entitic mass (RBC) 30.1 pg 27.0-32.0 [facility] Work Phone: [phone] MCHC 33.3 G/GL Invalid Interpretation Code 32-36 [facility] Work Phone: [phone] MCHC mass conc (RBC) 33.3 G/GL 32-[address] [facility] Work Phone: [phone] MCV 90.4 fL Invalid Interpretation Code 80-94 [facility] Work Phone: [phone] MCV Entitic volume (RBC) 90.4 fL 80-94 [facility] Work [phone] Monocytes/100 leukocytes 10.0 % Invalid Interpretation Code 0-10 [facility] Work Phone: [phone] Monocytes/100 WBC (Bld) 10.0 % 0-10 [facility] Work Phone: [phone] neutrophil count, blood 3.6 X10 3/UL Invalid Interpretation Code 2.0-7.7 [facility] Work Phone: [phone] Neutrophils #/vol (Bld) 3.6 X10 3/UL 2.0-7.7 [facility] Work Phone: [phone] Neutrophils/100 leukocytes 53.7 % Invalid Interpretation Code 47-70 [facility] Work Phone: [phone] Neutrophils/100 WBC (Bld) 53.7 % 47-70 [facility] Work Phone: [phone] Platelet mean volume Entitic volume (Bld) 11.0 fL 6.2-12.0 [facility] Work Phone: [phone] Platelets 241 10*3/mm3 Invalid Interpretation Code 150-450 [facility] Work Phone: [phone] Platelets #/vol (Bld) 241 10*3/mm3 150-450 [facility] Work Phone: [phone] PMV by Tino 11.0 fL Invalid Interpretation Code 6.2-12.0 [facility] Work Phone: [phone] RBC #/vol (Bld) 4.98 10*6/uL 4.6-6.2 [facility] Work Phone: [phone] RDW-CA 13.3 % Invalid Interpretation Code 11.6-14.6 [facility] Work Phone: [phone] red blood cell distribution width, size density 43.9 fL Invalid Interpretation Code 35.1-43.9 [facility] Work Phone: [phone] WBC #/vol (Bld) 6.8 10*3/uL 4.4-11.0 [facility] Work Phone: [phone] WBC (Leukocytes) 6.8 10*3/uL Invalid Interpretation Code 4.4-11.0 [facility] Work Phone: [phone] Lab Report: Comprehensive Ut tabolic Profilon 12-22-2016 Albumin/Globulin mass ratio 1 {ratio} Invalid Interpretation Code 0.9-2.4 [facility] Work Phone: [phone] Anion gap 9 mmol/L Invalid Interpretation Code 5-15 [facility] Work Phone: [phone] Anion gap molar conc 9 mmol/L 5-[address] [facility] Work Phone: [phone] Calcium mass conc 9.2 mg/dL Invalid Interpretation Code 8.5-10.1 [facility] Work Phone: [phone] Chloride molar conc 101 mmol/L Invalid Interpretation Code 98-107 [facility] [employer] Work Phone: [phone] CO2 29.0 mmol/L Invalid Interpretation Code 21.0-32.0 [facility] [employer] Work Phone: [phone] CO2 ppres (BldV) 29.0 mmol/L 21.0-32.0 [facility] [employer] Work Phone: [phone] Creatinine mass conc 1.03 mg/dL Invalid Interpretation Code 0.70-1.30 [facility] [employer] Work Phone: [phone] eGFR (non-black) 91 mL/min/{1.73_m2} Invalid Interpretation Code >60 [facility] [employer] Work Phone: [phone] EST GFR - AA 91 mL/min >60 [facility] [employer] Work Phone: [phone] GFR/1.73 sq M predicted among non-blacks MDRD vol rate/area (S/P/Bld) 75 mL/min/{1.73_m2} Invalid Interpretation Code >60 [facility] Work Phone: [phone] Glucose 164 mg/dL High 70-110 [facility] Work Phone: [phone] Glucose mass conc 164 mg/dL High 70-110 [facility] Work Phone: [phone] Potassium molar conc 3.9 mmol/L Invalid Interpretation Code 3.5-5.1 [facility] [employer] Work Phone: Sodium molar conc 139 mmol/L Invalid Interpretation Code 136-145 [facility] Work Phone: [phone] Urea nitrogen mass conc 16 mg/dL Invalid Interpretation Code 7-18 [facility] Work Phone: [phone] Urea nitrogen/Creatinine mass ratio 15.5 RATIO Invalid Interpretation Code 10-20 [facility] Work Phone: [phone] Lab Report: Folates, (Folic Acid)on 12-22-2016 Folate mass conc 52.70 ng/mL High 3.1-17.5 [facility] Work Phone: [phone]) Lab Report: Microalb:Creat R atio,Random URon 12-22-2016 ACR (microalbumin/creatinin e) ratio 5.8 MG/G CRE Invalid Interpretation Code <30 mg/g CRE [facility] Work Phone: [phone] Albumin DL <= 20 mg/L mass conc (U) 0.67 mg/dL Invalid Interpretation Code Units converted. See lab report for original value. [facility] Work Phone: [phone] Albumin/Creatinine DL <= 20 mg/L Ratio (U) 5.8 MG/G CRE <30 mg/g CRE [facility] Work Phone: [phone] Creatinine mass conc (U) 115.00 mg/dL Invalid Interpretation Code NO RANGE EST. [facility] Work Phone: [phone]) Lab Report: PSA,Total - Alma al Screenon 12-22-2016 prostate specific antigen (PSA) screening 1.22 ng/mL Invalid Interpretation Code 0.00-4.00 [facility] Work Phone: [phone] Protein mass conc 1.22 ng/mL 0.00-4.00 [facility] Phone: [phone]) Lab Report: Thyroid Stim Hor elisa (TSH)on 12-22-2016 Thyrotropin Qn 2.59 u[iU]/mL Invalid Interpretation Code 0.358-3.74 [facility] Phone: [phone] Office Visiton 12-03-2016 Documentation of current medications (procedure) Done Invalid Interpretation Code [facility] Work Phone: [phone] Protein mass conc Done [facility] Work Phone: [phone] Office Visit: [facility] 05-27-20 16 Dietary management education, guidance, and counseling (procedure) yes Invalid Interpretation Code [facility] Phone: [phone] Clinical Lists Update: Prelo architect 05-21-2016 Left ventricular Ejection fraction 58 % Invalid Interpretation Code [facility] Phone: [phone] Office Visiton 11-26-2015 Tobacco smoking status NHIS Tobacco smoking status NHIS Invalid Interpretation Code [facility] Phone: [phone] Tobacco smoking status NVIS Former smoker [facility] [facility] Work Phone: [phone] Tobacco use [facility] Former smoker Invalid Interpretation Code [facility] Phone: [phone] Replaced Document: Demetra Robertson CG Observationson 05-21-2015 EKG QRS axis -22 deg [facility] Phone: [phone] electrocardiogram interpretation Marked sinus Bradycardia -First degree A-V block Jevon = 266-Poor R-wave progression -nonspecific -consider old anterior infarct. BORDERLINE Invalid Interpretation Code [facility] Phone: [phone] GE use only - for [employer] import when terms are not otherwise specified 417 ms Invalid Interpretation Code [facility] Phone: [phone] P [place] 35 deg [facility] Work Phone: [phone] P wave axis, electrocardiogram 35 deg Invalid Interpretation Code [facility] Phone: [phone] [place] Interval 266 ms [facility] Work Phone: [phone] [place] interval, electrocardiogram 266 ms Invalid Interpretation Code [facility] Phone: [phone] Protein mass conc Marked sinus Bradycardia -First degree A-V block Jevon = 266-Poor R-wave progression -nonspecific -consider old anterior infarct. BORDERLINE [facility] Phone: Pulse (Heart Rate) 49 /min Invalid Interpretation Code [facility] Phone: QRS axis, electrocardiogram -22 deg Invalid Interpretation Code [facility] Phone: [phone] QRS Duration 96 ms [facility] Work Phone: [phone] QRS duration, electrocardiogram 96 ms Invalid Interpretation Code [facility] Work Phone: [phone] QT Interval new path ms [facility] Work Phone: [phone] QT interval, electrocardiogram new path ms Invalid Interpretation Code [facility] Work Phone: [phone] QTc Zuñiga 417 ms [facility] Work Phone: [phone] T [place] -1 deg [facility] Work Phone: [phone] T wave axis, electrocardiogram -1 deg Invalid Interpretation Code [facility] Work Phone: [phone] Replaced Document: Demetra Robertson CG Observationson 05-11-2014 Pulse (Heart Rate) 410 ms Invalid Interpretation Code [facility] Work Phone: [phone] Clinical Lists Update: Prelo architect 12-18-2011 MCHC 34.2 % Invalid Interpretation Code [facility] Work Phone: [phone] MCHC mass conc (RBC) 34.2 % [facility] [employer] Work Phone: [phone] Office Visiton 09-07-2011 cardiac risk group C Invalid Interpretation Code [facility] [employer] Work Phone: [phone] cholesterol, target level 200 mg/dL Invalid Interpretation Code [facility] [employer] Work Phone: [phone] General cardiovascular disease 10Y risk [#] Milroy.D'Agostino N/A Invalid Interpretation Code [facility] [employer] Work Phone: [phone] HDL cholesterol, serum, target level 40 mg/dL Invalid Interpretation Code [facility] [employer] Work Phone: [phone] LDL target level 70 mg/dL Invalid Interpretation Code [facility] [employer] Work Phone: [phone] triglyceride, target level 150 mg/dL Invalid Interpretation Code [facility] Work Phone: [phone] Vital Signs Date Time Vital Sign Value Performing Clinician Khadra marquez 03-15-2025 09:02-0400 Body height 175.[address] Shima Allen DO Work Phone: [facility] 03-15-2025 09:02-0400 Body mass index (BMI) [Ratio] 24.5 kg/m2 Dr. Shima Allen DO Work Phone: [facility] 03-15-2025 09:02-0400 Body weight 75.[address] Shima Allen DO Work Phone: [facility] 03-15-2025 09:02-0400 Diastolic blood pressure 64 mm[Hg] Dr. Shima Allen DO Work Phone: [facility] 03-15-2025 09:02-0400 Heart rate 64 /min Dr. Shima Allen DO Work Phone: [facility] 03-15-2025 09:02-0400 Respiratory rate 16 /min Dr. Shima Allen DO Work Phone: [facility] 03-15-2025 09:02-0400 Systolic blood pressure 155 mm[Hg] Dr. Shima Allen DO Work Phone: [facility] 01-11-2024 08:31-0400 Body height 175.[address] Shima Allen Work Phone: [facility] 01-11-2024 08:31-0400 Body mass index (BMI) [Ratio] 25.4 kg/m2 Dr. Shima Allen Work Phone: [facility] 01-11-2024 08:31-0400 Body weight 78.[address] Shima Allen Work Phone: [facility] 01-11-2024 08:31-0400 Diastolic blood pressure 68 mm[Hg] Dr. Shima Allen Work Phone: [facility] 01-11-2024 08:31-0400 Heart rate 65 /min Dr. Shima Allen Work Phone: [facility] 01-11-2024 08:31-0400 Respiratory rate 16 /min Dr. Shima Allen Work Phone: [facility] 01-11-2024 08:31-0400 Systolic blood pressure 141 mm[Hg] Dr. Shima Allen Work Phone: [facility] 11-17-2023 10:13-0500 Body height 175.[address] Shima Allen Work Phone: [facility] 11-17-2023 10:13-0500 Body mass index (BMI) [Ratio] 25.2 kg/m2 Dr. Shima Allen Work Phone: [facility] 11-17-2023 10:13-0500 Body temperature 97.3 [degF] Dr. Shima Allen Work Phone: [facility] 11-17-2023 10:13-0500 Body weight 77.[address] Shima Allen Work Phone: [facility] 11-17-2023 10:13-0500 Diastolic blood pressure 79 mm[Hg] Dr. Shima Allen Work Phone: [facility] 11-17-2023 10:13-0500 Heart rate 61 /min Dr. Shima Allen Work Phone: [facility] 11-17-2023 10:13-0500 Respiratory rate 16 /min Dr. Shima Allen Work Phone: [facility] 11-17-2023 10:13-0500 SaO2% (BldA) [Mass fraction] 98 % Dr. Shima Allen Work Phone: [facility] 11-17-2023 10:13-0500 Systolic blood pressure 178 mm[Hg] Dr. Shima Allen Work Phone: [facility] 12-23-2021 07:30-0500 Body height 175.[address] Shima Allen Work Phone: [facility] Work Phone: 12-23-2021 07:30-0500 Body weight 80.[address] Shima Allen Work Phone: [facility] Work Phone: 12-23-2021 07:30-0500 Diastolic blood pressure 79 mm[Hg] Dr. Shima Allen Work Phone: [facility] Work Phone: 12-23-2021 07:30-0500 Heart rate 58 /min Dr. Shima Allen Work Phone: [facility] Work Phone: 12-23-2021 07:30-0500 Respiratory rate 16 /min Dr. Shima Allen Work Phone: [facility] Work Phone: 12-23-2021 07:30-0500 SaO2% (BldA) [Mass fraction] 99 % Dr. Shima Allen Work Phone: [facility] Work Phone: 12-23-2021 07:30-0500 Systolic blood pressure 161 mm[Hg] Dr. Shima Allen Work Phone: [facility] Work Phone: 12-19-2020 08:05-0500 Body mass index (BMI) [Ratio] 25.7 kg/m2 Dr. Shima Allen Work Phone: [facility] Work Phone: 06-14-2017 11:03-0400 Heart rate 60 /min [facility] Work Phone: 06-14-2017 10:41-0400 BMI (Body Mass Index) 24.95 kg/m2 [facility] Work Phone: 06-14-2017 10:41-0400 BP Diastolic 70 mm[Hg] [facility] Work Phone: 06-14-2017 10:41-0400 BP Systolic 112 mm[Hg] [facility] Work Phone: 06-14-2017 10:41-0400 Height 175.26 cm [facility] Work Phone: 06-14-2017 10:41-0400 Pulse (Heart Rate) 64 /min [facility] Work Phone: 06-14-2017 10:41-0400 Respiratory Rate 18 /min [facility] Work Phone: 06-14-2017 10:41-0400 Weight 76.66 kg [facility] Work Phone: 12-03-2016 08:46-0500 BMI (Body [...] Weight 82.1 kg MD [facility] Work Phone: 05-21-2015 09:06-0400 Heart rate 49 /min MD [facility] Work Phone: 05-11-2014 08:18-0400 Heart rate 410 ms MD [facility] Work Phone: 08-06-2008 10:52-0400 Height 175.26 cm MD [facility] Work Phone: 08-06-2008 10:52-0400 Weight 75.91 kg Larry Pittman MD [facility] Work Phone: Encounters Encounter Date Encounter Type Care Provider Facility Start: 03-15-2025 End: 03-15-2025 Patient encounter procedure Lin WILSON [facility] Work Phone: Start: 03-15-2025 End: 03-15-[address] Shima Allen DO Work Phone: [facility] Work Phone: Start: 02-06-2025 End: 02-06-[address] Shima Allen DO Work Phone: [facility] Work Phone: Start: 02-06-2025 End: 02-06-[address] Shima Allen DO -Laboratory Work Phone: Start: 02-06-2025 End: 02-06-2025 ambulatory Shima Allen Facility:[facility] Start: 07-12-2024 End: 07-12-2024 ambulatory Shima Allen Facility:[facility] Start: 01-21-2024 Non-patient / Non-visit Dr. Shima Allen Work Phone: [facility] Start: 01-21-2024 End: 01-21-[address] Shima Allen Work Phone: [facility] Work Phone: Start: 01-21-2024 End: 01-21-[address] [facility] Start: 01-11-2024 End: 01-11-[address] Shima Allen Work Phone: [facility] Work Phone: Start: 12-30-2023 End: 12-30-[address] Shima Allen Work Phone: [facility] Work Phone: Start: 12-30-2023 End: 12-30-[address] Shima Allen Work Phone: [facility] Work Phone: Start: 11-17-2023 End: 11-17-[address] Shima Allen Work Phone: [facility] Work Phone: Start: 12-04-2022 ambulatory Shima Allen DO Comp re[facility] Internal Med Start: 01-12-2022 Non-patient / Non-visit Dr. Shima Allen Work Phone: [facility] Start: 01-12-2022 End: 01-12-[address] Shima Allen Work Phone: [facility] Start: 12-23-2021 End: 12-23-[address] Shima Allen Work Phone: [facility] Procedures Date Procedure Procedure Detail Performing Clinician Start: 02-06-[address] Kamlesh Allen DO Work Phone: Comment on above: Test Ordered: [id number] Apolipoprotein BApolipoprotein B 74 mg/dL Reference Range: <90 Desirable < 90 Borderline High 90 - 99 High 100 - 130 Very High >130 ASCVD RISK THERAPEUTIC TARGET CATEGORY APO B (mg/dL) Very High Risk <80 (if extreme risk <70) High Risk <90 Moderate Risk <90Performed at: [address] [id number] Director: Juancarlos Galicia MD, Phone: [phone] at: CB - [facility] [address] [id number] Director: Jerzy Chin PhD, Phone: [phone] Start: 02-06-2025 Urnls dip stick/tabl et reagent auto microscopy Dr. Shima Allen DO Work Phone: Start: 02-06-2025 Vitamin D, 25-hydrox y measurement Dr. Shima Allen DO Work Phone: Comment on above: Vitamin D StatusDefi ciency: <20 ng/mL (50nmol/L)Insufficiency: 20-30 ng/mL (50-75 nmol/L)Sufficiency: 30-100 ng/mL (75-250 nmol/L)Toxicity: >100 ng/mL (>250 nmol/L) Start: 12-03-2017 End: 12-03-2017 *Hepatic Function Panel Sarina Moore Start: 12-03-2017 End: 12-03-2017 Lipid panel [AGGREGATE] Sarina Moore Start: 06-14-2017 End: 06-14-2017 MUSIC MIXER Mora Durbin PA-C Work Phone: Start: 06-14-2017 End: 06-14-2017 Electrocardiogram, complete Mora Durbin PA-C Work Phone: Start: 06-14-2017 End: 06-14-2017 Follow Up Appt 6 months Mora almaguer PA-C Work Phone: Start: 06-02-2017 End: 06-02-2017 *Hepatic Function Panel Mora almaguer PA-C Work Phone: Start: 06-02-2017 End: 06-02-2017 Lipid panel [AGGREGATE] Mora almaguer PA-C Work Phone: Start: 12-03-2016 End: 12-22-2016 *Hepatic Function Panel Sarina Moroe Start: 12-03-2016 End: 12-03-2016 Follow Up Appt 6 months Sarina Moore Start: 12-03-2016 End: 12-22-2016 Lipid panel [AGGREGATE] Sarina Moore Start: 12-03-2016 End: 12-03-2016 MMSarina Pittman MD Start: 05-27-2016 End: 05-27-2016 Dietary management education, guidance, and counseling Larry Pittman MD Start: 05-27-2016 End: 05-27-2016 MUSIC MIXER Mora Durbin PA-C Work Phone: Start: 05-27-2016 [...] PA-C Work Phone: Start: 05-21-2015 End: 05-21-2015 MUSIC MIXER Mora Durbin PA-C Work Phone: Start: 05-21-2015 [...] [AGGREGATE] Sarina Moore Start: 05-11-2014 End: 05-11-2014 MUSIC MIXER Mora Durbin PA-C Work Phone: Start: 05-11-2014 End: 05-11-2014 Electrocardiogram, complete Mora Durbin PA-C Work Phone: Start: 05-11-2014 End: 05-11-2014 Follow Up Appt 6 months Mora almaguer PA-C Work Phone: Start: 02-15-2014 End: 03-15-2014 *Hepatic Function Panel Sarina Moore Start: 02-15-2014 End: 03-15-2014 Lipid panel [AGGREGATE] Sarina Moore Start: 11-14-2013 End: 11-14-2013 Follow Up Appt 6 months Sarina Moore Start: 11-14-2013 End: 11-14-2013 MMaSrina Pittman MD Start: 08-18-2013 End: 09-12-2013 *Hepatic Function Panel Sarina Moore Start: 08-18-2013 End: 09-12-2013 Lipid panel [AGGREGATE] Sarina Moore Start: 02-01-2013 End: 03-22-2013 *Hepatic Function Panel Lance Demarco MD Start: 02-01-2013 End: 03-22-2013 Lipid panel [AGGREGATE] Lance Demarco MD Start: 11-14-2012 End: 11-14-2012 Follow Up Appt 1 year Lance Demarco MD Start: 08-18-2012 End: 09-16-2012 *Hepatic Function Panel Lance Demarco MD Start: 08-18-2012 End: 09-16-2012 Lipid panel [AGGREGATE] Lance Demarco MD Start: 04-21-2012 End: 04-21-2012 Follow Up Appt 6 months Lance Demarco MD Start: 04-21-2012 End: 04-21-2012 Lipid panel [AGGREGATE] Lance Demarco MD Start: 02-24-2012 End: 03-10-2012 *Hepatic Function Panel Lance Demarco MD Start: 02-24-2012 End: 03-10-2012 Lipid panel [AGGREGATE] Lance Demarco MD Start: 09-07-2011 End: 09-07-2011 Follow Up Appt 6 months Lance Demarco MD Start: 11-20-2003 History of coronary artery bypass grafting H/O coronary artery bypass surgery Lin Cai SALES ENABLEMENT ANALYSTRadhaC Comment on above: CABG x 3: PARRY-LAD, SVG-LPDA and SVG-D1 11/20/2003 Plan of Treatment Date Care Activity Detail Author Start: 12-16-2017 End: 12-16-2017 Appointment Appointment [facility] Work Phone: Start: 12-09-2017 End: 12-09-2017 Appointment Appointment [facility] Work Phone: Start: 12-03-2017 End: 12-03-2017 *Hepatic Function Panel *Hepatic Function Panel [facility] Work Phone: Start: 12-03-2017 End: 12-03-2017 Lipid panel [AGGREGATE] *Lipid Profile CC PCP [facility] Work Phone: Start: 06-25-2017 End: 06-02-2017 *Hepatic Function Panel *Hepatic Function Panel [facility] Work Phone: Start: 06-25-2017 End: 06-02-2017 Lipid panel [AGGREGATE] *Lipid Profile CC PCP [facility] Work Phone: Start: 06-14-2017 End: 06-14-2017 Appointment Appointment [facility] Work Phone: Start: 06-14-2017 End: 06-14-2017 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[facility] Work Phone: Start: 06-14-2017 End: 06-14-2017 Follow Up Appt 6 months Follow Up Appt 6 months [facility] Work Phone: Start: 12-03-2016 End: 12-22-2016 *Hepatic Function Panel *Hepatic Function Panel [facility] Work Phone: Start: 12-03-2016 End: 12-03-2016 Follow Up Appt 6 months Follow Up Appt 6 months [facility] Work Phone: Start: 12-03-2016 End: 12-22-2016 Lipid panel [AGGREGATE] *Lipid Profile CC PCP [facility] Work Phone: Start: 12-03-2016 End: 12-03-2016 MMM MMM [facility] Work Phone: Start: 05-27-2016 End: 05-27-2016 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[facility] Work Phone: Start: 05-27-2016 End: 05-27-2016 Follow Up Appt 6 months Follow Up Appt 6 months [facility] Work Phone: Start: 03-16-2016 End: 12-03-2016 *Hepatic Function Panel *Hepatic Function Panel [facility] Work Phone: Start: 03-16-2016 End: 12-03-2016 Lipid panel [AGGREGATE] *Lipid Profile CC PCP [facility] Work Phone: Start: 11-26-2015 End: 11-26-2015 Follow Up Appt 6 months Follow Up Appt 6 months [facility] Work Phone: Start: 11-26-2015 End: 11-26-2015 MMM MMM [facility] Work Phone: Start: 11-26-2015 End: 11-26-2015 Nuclear stress test -exercise Nuclear stress test -exercise [facility] Work Phone: Start: 09-12-2015 End: 09-16-2015 *Hepatic Function Panel *Hepatic Function Panel [facility] Work Phone: Start: 09-12-2015 End: 09-16-2015 Lipid panel [AGGREGATE] *Lipid Profile CC PCP [facility] Work Phone: Start: 05-21-2015 End: 05-21-2015 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[facility] Work Phone: Start: 05-21-2015 End: 05-21-2015 Electrocardiogram, complete EKG (In office) [facility] Work Phone: Start: 05-21-2015 End: 05-21-2015 Follow Up Appt 6 months Follow Up Appt 6 months [facility] Work Phone: Start: 05-21-2015 End: 05-18-2016 Follow Up Appt Other Follow Up Appt Other [facility] Work Phone: Start: 05-21-2015 End: 05-21-2015 Follow Up BP Check Follow Up BP Check [facility] Work Phone: Start: 03-08-2015 End: 03-08-2015 *Hepatic Function Panel *Hepatic Function Panel [facility] Work Phone: Start: 03-08-2015 End: 03-08-2015 Lipid panel [AGGREGATE] *Lipid Profile CC PCP [facility] Work Phone: Start: 11-13-2014 End: 11-13-2014 Follow Up Appt 6 months Follow Up Appt 6 months [facility] Work Phone: Start: 11-13-2014 End: 11-13-2014 MMM MMM [facility] Work Phone: Start: 08-18-2014 End: 09-10-2014 *Hepatic Function Panel *Hepatic Function Panel [facility] Work Phone: Start: 08-18-2014 End: 09-10-2014 Lipid panel [AGGREGATE] *Lipid Profile CC PCP [facility] Work Phone: Start: 05-11-2014 End: 05-11-2014 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[facility] Work Phone: Start: 05-11-2014 End: 05-11-2014 Electrocardiogram, complete EKG (In office) [facility] Work Phone: Start: 05-11-2014 End: 05-11-2014 Follow Up Appt 6 months Follow Up Appt 6 months [facility] Work Phone: Start: 02-15-2014 End: 03-15-2014 *Hepatic Function Panel *Hepatic Function Panel [facility] Work Phone: Start: 02-15-2014 End: 03-15-2014 Lipid panel [AGGREGATE] *Lipid Profile CC PCP [facility] Work Phone: Start: 11-14-2013 End: 11-14-2013 Follow Up Appt 6 months Follow Up Appt 6 months [facility] Work Phone: Start: 11-14-2013 End: 11-14-2013 MMM MMM [facility] Work Phone: Start: 08-18-2013 End: 09-12-2013 *Hepatic Function Panel *Hepatic Function Panel [facility] Work Phone: Start: 08-18-2013 End: 09-12-2013 Lipid panel [AGGREGATE] *Lipid Profile CC PCP [facility] Work Phone: Start: 02-01-2013 End: [...] 09-16-2012 *Hepatic Function Panel *Hepatic Function Panel [facility] Work Phone: Start: 08-18-2012 End: 09-16-2012 Lipid panel [AGGREGATE] *Lipid Profile [facility] Work Phone: Start: 04-21-2012 End: 04-21-2012 Electrocardiogram, complete EKG (In office) [facility] Work Phone: Start: 04-21-2012 End: 04-21-2012 Follow Up Appt 6 months Follow Up Appt 6 months [facility] Work Phone: Start: 02-24-2012 End: 03-10-2012 *Hepatic Function Panel *Hepatic Function Panel [facility] Work Phone: Start: 02-24-2012 End: 03-10-2012 Lipid panel [AGGREGATE] *Lipid Profile [facility] Work Phone: Start: 09-07-2011 End: 09-07-2011 Follow Up Appt 6 months Follow Up Appt 6 months [facility] Work Phone: [facility] Education [facility] Work Phone: Payers Date Payer Category Payer Self-pay [id number] 2021 Medicare [id number] 2021 Private Health Insurance [id number] 2006 Medicare [id number] 2005 Private Health Insurance [facility] [id number] 1940 Unknown [id number] Unknown Unknown [id number] Unknown [id number] Unknown [id number] Social History Date Type Detail Facility Start: 12-23-2021 End: 01-11-2024 Tobacco smoking status [facility] Unknown if ever smoked [facility] Start: 12-23-2021 None [facility] Start: 12-23-2021 Non-smoker [facility] Start: 1940 Sex Assigned At Male W [facility] Start: 01-11-2024 Tobacco smoking stat [facility] Ex-smoker (finding) [facility] Start: 02-10-2025 Sex Male (finding) [facility] Evaluation note 11-20-2003 Note Date & Type Note Facility 11-20-2003 Evaluation note Diagnosis Onset Date Essential (primary) hypertension chronic 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, 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 HLD (hyperlipidemia) chronic Paroxysmal ventricular tachycardia [facility] Work Phone: Evaluation note 11-20-2003 Note Date & Type Note Facility 11-20-2003 Evaluation note Diagnosis Onset Date Decreased vision in both eyes acute Ptosis of eyelid, bilateral acute Essential (primary) hypertension chronic 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, 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 HLD (hyperlipidemia) [facility] Work Phone: Evaluation note 11-20-2003 Note Date & Type Note Facility 11-20-2003 Evaluation note Diagnosis Onset Date Resolution Essential (primary) hypertension chronic March 15, 2025 8:34am 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, 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 March 15, 2025 8:34am HLD (hyperlipidemia) chronic March 15, 2025 8:34am [facility] Work Phone: Evaluation note Note Date & Type Note Facility Evaluation note Diagnosis Onset Date Decreased vision in both eyes acute Ptosis of eyelid, bilateral acute [facility] Work Phone: Evaluation note Note Date & Type Note Facility Evaluation note No assessment information availa [facility] Work Phone: Reason for referral (narrative) Note Date & Type Note Facility Reason for referral (narrative) No reason for referral information available [facility] Work Phone: Chief Complaint and Reason for Visit Chief Complaint 1 Y FU V-TACH, S/P CABG Reason for Visit Essential (primary) hypertension H/O coronary artery bypass surgery HLD (hyperlipidemia) Paroxysmal ventricular tachycardia Chief Complaint BLEPHAROPLASTY Reason for Visit Decreased vision in both eyes Ptosis of eyelid, bilateral Chief Complaint BLEPHAROPLASTY 1 Y FU Occlusion and stenosis of bilateral carotid arteri Reason for Visit Decreased vision in both eyes Ptosis of eyelid, bilateral Essential (primary) hypertension H/O coronary artery bypass surgery HLD (hyperlipidemia) Chief Complaint Admit Date 1 Y FU March 15, 2025 8:34a m Reason for Visit Admit Date Essential (primary) hypertension February 8:34am H/O coronary artery bypass surgery February 162024 8:34am HLD (hyperlipidemia) March 15, 2025 8:34 am Advance Directives No Advanced Directives Records Found Advance Directive Response Recorded Date/ Time Living Will Yes February 01, 2014 5:58pm Power of Er Medical Technician Yes February 01 5:58pm Advance Directive Response Recorded Date/ Time Living Will Yes February 01, 2014 5:58pm Do you have a [facility] Power of Er Medical Technician? Yes February 01, 2014 5:58pm Summary Purpose Family History No Family History Records FoundNo Family History Records Found Additional Source Comments Goals (unrecognized section and content) Goals may be documented in a n alternate sectionGoals may be documented in an alternate sectionGoals may be documented in an alternate sectionGoals may be documented in an alternate sectionGoals may be documented in an alternate section (unrecognized sect ion and content) No Status Records FoundNo Status Records Found INFORMATION SOURCE (unrecogn ized section and content) DATE CREATED AUTHOR 12/05/2022 [facility] DATE CREATED AUTHOR AUTHOR'S ORGANIZ ATION 03/17/2025 [facility] Care Teams (unrecognized sec tion and content) Team Status: Active Member Role Status Dates Dr. Shima Allen DO Family Provider Active Dr. Shima Allen , DO Primary Care Provider Active Team Status: Inactive Member Role Status Dates Dr. Shima Allen DO Primary Care Provider, Referr ing Provider Active Dr. Manju Spring MD Attending Provider Active Team Status: Inactive Member Role Status Dates Dr. Shima Allen DO Primary Care Pr ovider, Attending Provider, Referring Provider Active Team Status: Inactive Member Role Status Dates Dr. Shmia Allen DO Primary Care Provider, Referr ing Provider Active Wallace Camargo SALES ENABLEMENT ANALYST, SALES ENABLEMENT ANALYST-C Attending Provider Active Team Status: Active Member Role Status Dates Dr. Shima Allen DO Primary Care Provider, Referr ing Provider Active Dr. Gabbie Valero MD Attending Provider Active Team Status: Inactive Member Role Status Dates Dr. Shima Allen DO Primary Care Provider Active Start: February 06, 2025 End: February 06, 2025 Dr. Shima Allen DO Attending Provider Active Start: February 06, 2025 End: February 06, 2025 Dr. Shima Allen DO Referring Provider Active Start: February 06, 2025 End: February 06, 2025 Team Status: Active Member Role Status Dates Dr. Shima Allen DO Primary Care Provider Active Team Status: Inactive Member Role Status Dates Dr. Shima Allen DO Primary Care Provider Active Start: March 15, 2025 End: March 15, 2025 Dr. Shima Allen DO Referring Provider Active Start: March 15, 2025 End: March 15, 2025 Lin Cai SALES ENABLEMENT ANALYST, SALES ENABLEMENT ANALYST-C Attending Provider Active Start: March 15, 2025 End: March 15, 2025 FOR RECORDS PERTAINING TO PATIENTS WHO ARE [...] BE BASED ON THE PRIMARY CLINICAL RECORDS. [facility] [employer] provides no warranty or guarantee of the accuracy or completeness of information in this document.
[2025-09-28 06:11] LABS: Mucous, Urine 0 SEEN /hpf (<or=2+); Squamous Epithelial Cells - UA 0 SEEN /hpf (0-5)
[2025-09-28 06:54] LABS: Creatinine, Urine (random) 92.40 mg/dL (39.00-259.00); Microalbumin,Random Urine 25.0 mg/L (<20 mg/L)
[2025-09-28 08:06] LABS: Hematocrit 42.8 % (40-54); Hemoglobin 14.4 g/dL (13.0-16.5); Immature Granulocytes Count 0.030 X10^3/uL (0.0-0.0); Mean Corp Hgb Conc 33.6 g/dL (32-36); Mean Corpuscular Volume 91.1 fL (80-94); Mean Platelet Vol. 10.6 fl (6.2-12.0); NRBC Flagged by Analyzer 0 % (0-5); Platelet Count 230 K/mm3 (150-450); RBC Distribution Width CV 13.2 % (11.6-14.6); RBC Distribution Width SD 44.7 fl (35.1-43.9); Red Blood Count 4.70 M/mm3 (4.6-6.2); White Blood Count 7.1 K/mm3 (4.4-11.0)
[2025-09-28 08:40] LABS: Color, Urine Yellow (Yellow); Glucose, Dipstick Normal (Normal); Ketone-Dipstick Negative (Negative); Leukocyte Esterase-Dipstick Negative /ul (Negative); Nitrite-Dipstick Negative (Negative); Occult Blood-Urine 10 /ul (Negative); Protein-Dipstick 15 mg/dl (Negative); Specific Gravity, Urine 1.010 (1.002-1.030); Urine Bilirubin Dipstick Negative (Negative)
[2025-09-28 08:48] LABS: Red Blood Cells-Urine 0-5 SEEN /hpf (0-5)
[2025-09-28 08:54] LABS: AST(SGOT) 27 U/L (<=37); Alanine Aminotransfer ALT/SGPT 23 U/L (<=46); Albumin, Serum 4.6 g/dL (3.4-4.8); Alkaline Phosphatase 49 U/L (40-129); Anion Gap 10 (5-15); BUN 16 mg/dL (4-19); BUN/Creat Ratio 16.0 RATIO (10-20); Calcium,Total 9.8 mg/dL (7.6-11.0); Carbon Dioxide 27.4 mmol/L (21.0-32.0); Chloride 100 mmol/L (98-108); Cholesterol 173 mg/dL (<=200); Globulin 3.0 g/dL (2.2-4.2); Glucose 119 mg/dL (70-99); Low Density Lipoprotein Calc. 82 mg/dL; Potassium 4.5 mmol/L (3.3-5.1); Triglycerides 70 mg/dL; Very Low Density Lipoprotein 14 mg/dL (5-40); cholesterol:hdl ratio screen 2.22
[2025-09-28 08:55] LABS: Vitamin D,25 Hydroxy 112.0 ng/mL (30-100)
== END | disposition home or self-care (01) ==
LOC: LAB 06:03
PROVIDERS: PCP Internal Medicine; Referring Provider Internal Medicine; Visit Provider Internal Medicine
DX: E11.9 Type 2 diabetes mellitus without complications (principal); E78.5 Hyperlipidemia, unspecified; I25.10 Atherosclerotic heart disease of native coronary artery without angina pectoris; E55.9 Vitamin D deficiency, unspecified
CPT/HCPCS: 36415; 80053; 80061; 81001; 82043; 82306; 82570; 84443; 85025

== ENCOUNTER → 2025-10-15 | Outpatient (CLI) | payer MEDICARE, OTHER, SELFPAY ==
[2025-10-15 10:41] LABS: Mucous, Urine 0 SEEN /hpf (<or=2+); Red Blood Cells-Urine 0 SEEN /hpf (0-5); Squamous Epithelial Cells - UA 0 SEEN /hpf (0-5)
[2025-10-15 12:23] LABS: Color, Urine Yellow (Yellow); Glucose, Dipstick Normal (Normal); Ketone-Dipstick Negative (Negative); Leukocyte Esterase-Dipstick Negative /ul (Negative); Nitrite-Dipstick Negative (Negative); Occult Blood-Urine Negative /ul (Negative); Protein-Dipstick Negative (Negative); Specific Gravity, Urine 1.010 (1.002-1.030); Urine Bilirubin Dipstick Negative (Negative)
== END | disposition home or self-care (01) ==
LOC: LABSPEC 10:40
PROVIDERS: PCP Internal Medicine; Referring Provider Internal Medicine; Visit Provider Internal Medicine
DX: R31.9 Hematuria, unspecified (principal)
CPT/HCPCS: 81001